=== PATIENT | male | born 1950 | race Caucasian/White ===

== ENCOUNTER 2019-04-06 10:00 | Inpatient (IN) | payer OTHER, MEDICARE, SELFPAY ==
[2019-04-06] VITALS (99 sets, daily range): BP systolic 81–157; BP diastolic 44–116; PULSE 40–163; RESP 9–63; TEMP 36.4–37.2; O2SAT 89–99
--- NOTE | 2019-04-06 10:22 | DI.RAD_ITS ---
SYMPTOMS/DIAGNOSIS: AFIB, PALPITATIONS PORTABLE AP CHEST: The heart appears mildly enlarged. The lungs are clear and well expanded. CONCLUSION: Cardiomegaly, no evidence of acute process.
--- NOTE | 2019-04-06 10:29 | W.ED.GENAD ---
Discharge Plan Disposition Patient Disposition: [facility] INPATIENT Condition: Stable Discharge Details Chief Complaint: RespSymp Clinical Impression: Atrial fibrillation with rapid ventricular response Admit Date/Time: 04/06/19 13:51 Admit Provider: Darren Johnson Attending Provider: Darren Johnson Primary Care Provider: None,None ED Provider: Mitchell Richards Discharge Data Discharge Date/Time-TO BE ENTERED AT DEPARTURE: 04/06/19 15:38 Medical Decision Making 69-year-old male presents from home stating he had gradual onset of shortness of breath associated palpitations 2 days ago.'s been constant and unrelenting. He denies having chest pain or syncope. Admits to some generalized weakness. He arrives with a pulse of 158, otherwise reassuring vital signs. His initial screening EKG reveals atrial flutter with a rate of 160. Differential diagnosis includes dehydration, likely abnormality, rapid atrial fibrillation due to same or underlying ACS. Patient had IV access established, placed on a monitoring manager, given fluid bolus, diltiazem drip initiated, referred for laboratory testing, chest x-ray. The patient's diagnostic studies are reassuring and that his CBC, comprehensive panel, troponin negative. After bolus and infusion of diltiazem, patient has diffuse improved rate control with a pulse in the 90s. Given 1 mg/kg of Lovenox with atrial dysrhythmia of unknown/approximately 48 hours duration. No beds initially available at [facility], no beds at [facility]. Case discussed with [facility] who also are unable to accept due to bed availability. [facility] afternoon census was retaken, bed available. Patient seen in consultation by care management to help assist with care for the patient's 2 dogs. ECG Data Attestation: I personally reviewed and interpreted this ECG (s) as follows: Interpretation: Regular, narrow complex tachycardia with a rate of 160, there are T wave inversions in the lateral leads that are nonspecific. Most consistent with atrial flutter EKG #2 obtained at 1155 hrs. reveals underlying A. fib flutter with a ventricular response of 91, there are T wave inversions throughout the precordium HPI General Mode of arrival: ambulatory. Date/Time Provider Initiated Documentation: 04/06/19 10:01. Limitations to Documentation: no limitations. Information obtained by: patient. History of Present Illness 69 year old M presents to the emergency department with the chief complaint of Short of breath for 2 days with palpitations, described as moderate, Quality is described as dull and constant, and is localized to the chest. Patient reports no radiation. Patient started experiencing this day(s) and it has been constant. No relieving factors improve symptom(s), Movement worsens symptoms . Patient notes weakness; denies chest pain and syncope. Patient did receive the following treatments prior to arrival, none Related Data Home Medications Medication Instructions Recorded Confirmed aspirin [Aspir-81] 81 mg PO DAILY 02/21/15 04/06/19 ibuprofen 800 mg PO TID #30 tablet 02/21/15 04/06/19 lorazepam 1 mg PO .QHS 02/21/15 04/06/19 simvastatin 40 mg PO DAILY 02/21/15 04/06/19 bupropion HCl 150 mg PO DAILY 03/11/16 04/06/19 divalproex 1,500 tab PO .QHS 03/11/16 04/06/19 levothyroxine 25 mcg PO DAILY #30 tab 03/11/16 04/06/19 olanzapine [Zyprexa] 40 mg PO .QHS 03/11/16 04/06/19 diphenhydramine HCl 1 tab PO PRN PRN 03/14/16 04/06/19 benztropine 0.5 mg PO BID 04/06/19 04/06/19 Previous Rx's Medication Instructions Recorded ibuprofen 800 mg PO TID #30 tablet 02/21/15 levothyroxine 25 mcg PO DAILY #30 tab 03/11/16 Allergies Allergy/AdvReac Type Severity Reaction Status Date / Time plasma Allergy Unknown Uncoded 04/06/19 11:06 tuna fish AdvReac Intermediate Nausea Uncoded 04/06/19 11:06 General Stated Complaint: RespSymp DAWNA: 2 Review of Systems Review of Systems No chest pain. No syncope. 8 systems reviewed and otherwise no PFSH Social History Smoking/Tobacco Use Status: Former Tobacco Use Alcohol Intake: never Drug use: Never Substance use type: does not use Do you feel safe at home: Yes Do you feel safe in your relationship?: Yes Exam Narrative Exam Narrative: GEN: awake, alert, oriented 3. Pleasant, well groomed, interactive. HEAD: Normocephalic, atraumatic ENT: Mucous membranes moist, oropharynx unremarkable, External ear exam unremarkable EYES: PERRL, EOMI NECK: Full ROM, no FRANCY, no menigismus CHEST/RESP: Nontender, clear to auscultation bilateral, no wheeze/rhonchi/rales CARDIOVASCULAR: Rapid, regular rhythm that is tachycardic, no murmur, rub rufino. 2+ Rad pulse bilateral ABDOMEN: Soft, nontender, no mass. +Bowel sounds EXT: Full ROM, no edema, no rash Neuro: Grossly normal neurologic exam, conversant, interactive. Psych: Speech fluent, thoughts congruent, affect normal Course Vital Signs Temperature 37.2 C 04/06/19 10:08 Pulse 158 H 04/06/19 10:08 Respiratory Rate 14 04/06/19 10:08 Blood Pressure 118/98 H 04/06/19 10:08 Pulse Oximetry 99 04/06/19 10:08 Temperature 37.2 C 04/06/19 10:08 Temperature Source Temporal Artery Scan 04/06/19 10:08 Pulse 158 H 04/06/19 10:08 Respiratory Rate 14 04/06/19 10:08 Respiratory Effort Non-Labored 04/06/19 10:11 Blood Pressure 118/98 H 04/06/19 10:08 Blood Pressure Position Sitting 04/06/19 10:08 Pulse Oximetry 99 04/06/19 10:08 Oxygen Delivery Method Room Air 04/06/19 10:08 Oxygen Flow Rate 0 04/06/19 10:08 Pain Level 0 04/06/19 10:08 Critical Care Time Critical Care Time: Yes Total Critical Care Time: 30 Attestation: Bedside management, discussion with consultants
[2019-04-06] MEDS: dilTIAZem 25 MG/5 ML VIAL 10 MG IVP ×2 (10:32→10:59)
[2019-04-06] MEDS: dilTIAZem 125 MG in Normal Saline 100 ML IV (10:43)
[2019-04-06] MEDS: Normal Saline 250 ML 500 ML IV (10:47)
[2019-04-06 10:57] LABS: Absolute Eosinophil Count 0.16 k/cumm (0.0-0.7); HCT 40.1 % (40.0-50.0); HGB 12.8 g/dL (13.5-17.5); Mean Corp. HGB Concentration 31.9 g/dL (32.0-36.0); Mean Corpuscular Hemoglobin 31.3 pg (27.0-33.0); Mean Platelet Volume 10.3 fL (8.0-11.0); Platelet Count 198 x1000/uL (130-400); RBC 4.09 m/cumm (4.50-6.00); RBC Distribution Width 13.1 % (11.8-14.1); White Blood Cell Count 7.83 k/cumm (4.4-10.8)
[2019-04-06 11:10] LABS: Absolute Basophil Count 0.08 k/cumm (0.0-0.2); Absolute Lymphocyte Count 2.04 k/cumm (1.2-3.4); Absolute Monocyte Count 0.78 k/cumm (0.11-0.7); Absolute Neutrophil Count 4.78 k/cumm (1.2-6.7)
[2019-04-06 11:11] LABS: Diff Comment Manual Differential; RBC Morphology Normal
[2019-04-06 11:14] LABS: INR 1.1 (0.9-1.1); PTT Activated 23.2 sec (21.0-31.4); Prothrombin Time 11.3 sec (9.3-11.0)
[2019-04-06 11:26] LABS: ALT 26 U/L (12-78); AST 19 U/L (15-37); Albumin 3.7 g/dL (3.4-5.0); Alkaline Phosphatase 52 U/L (46-116); Anion Gap 10.1 mmol/L (3-11); BUN 16 mg/dL (7-18); Bilirubin, Total 0.7 mg/dL (0.2-1.0); CO2 26.9 mmol/L (21.0-32.0); CREATININE 1.24 mg/dL (0.70-1.30); Calcium 9.2 mg/dL (8.5-10.1); Chloride 107 mmol/L (98-107); Estimated GFR 58.15 (mL/min/1.73m2); Glucose 145 mg/dL (70-100); Potassium 4.4 mmol/L (3.5-5.1); Sodium 144 mmol/L (136-145); Total Protein 6.8 g/dL (6.4-8.2)
[2019-04-06 11:27] LABS: Troponin I < 0.05 ng/mL (0.00-0.06)
[2019-04-06] MEDS: dilTIAZem 25 MG/5 ML VIAL 5 MG IVP (11:39)
[2019-04-06 11:50] LABS: Bilirubin Negative (Negative); Blood Negative (Negative); Clarity Clear (Clear); Glucose Negative (Negative); Ketones Negative (Negative); Leukocyte Esterase Negative (Negative); Nitrite Negative (Negative); Specific Gravity 1.015 (1.005-1.025); Urobilinogen 0.2 EU/dL (Up TO 0.2)
[2019-04-06] MEDS: Enoxaparin 80 MG/0.8 ML SYR SC (12:32)
[2019-04-06 13:05] LABS: NT-proBNP 3620 pg/mL
[2019-04-06 14:24] LABS: TSH 4.89 uIU/mL (0.358-3.74)
[2019-04-06] MEDS: dilTIAZem 125 MG in Normal Saline 100 ML 10 MG IV (16:45)
--- NOTE | 2019-04-06 17:19 | PGE_ITS ---
Date of Service Date of service: 04/06/19 Time of Service: 17:17 Subjective Interval history since last seen: 69 year old man with a prior history of Hypothyroidism and bipolar disorder, being admitted from [facility] Emergency Department with a new diagnosis of Afib. [facility]. Lin [facility], and has a Past Medical History significant for Bipolar Disorder, Hypothyroidism on replacement therapy, prior Cannabis abuse, Hematuria, dyslipidemia, and prior SBO. He presented to the ED with a 2 day history of worsening dyspnea and fatigue, along with subjective constipation. Work-up was significant for a normal WBC, electrolytes, Magnesium, Troponin, LFTs, and urinalysis. His TSH was minimally elevated on replacement therapy. His BNP however was elevated at 3620, and his CXR showed cardiomegally. He was referred for admission for further evaluation and treatment. Exam Narrative Exam Narrative: General: Patient appears comfortable, AAOX3, NAD Neck: Supple CV: Heart sounds appear regular, tachycardic, S1S2, No rubs, murmurs, or gallops. Pulmonary: Bibasilar crackles, wheezing, or rhonchi Abdomen: + Bowel Sounds, soft, nontender, nondistended Vascular: No lower extremity edema Psych: Normal mood and affect. Objective Objective Clinical Data: Abnormal lab results 04/06/19 04/06/19 04/06/19 Range/Units 10:15 10:15 10:15 RBC 4.09 L (4.50-6.00) m/cumm Hgb 12.8 L (13.5-17.5) g/dL MCV 98.0 H (80-95) fL MCHC 31.9 L (32.0-36.0) g/dL Absolute Monocytes 0.78 H (0.11-0.7) k/cumm PT 11.3 H (9.3-11.0) sec Glucose 145 H (70-100) mg/dL NT-Pro-B Natriuret Pep 3620 H ( - 299) pg/mL TSH 4.89 H (0.358-3.74) uIU/mL Vital Signs Temperature 36.9 C 04/06/19 16:32 Temperature Source Temporal Artery Scan 04/06/19 16:32 Pulse 88 04/06/19 16:32 Pulse 91 H 04/06/19 16:32 Respiratory Rate 15 04/06/19 16:32 Respiratory Effort Non-Labored 04/06/19 16:32 Respiratory Depth Normal 04/06/19 16:32 Respiratory Pattern Normal 04/06/19 16:32 Blood Pressure 126/81 04/06/19 16:32 Blood Pressure Mean 96 04/06/19 16:32 Blood Pressure Position Supine 04/06/19 16:32 Pulse Oximetry 97 04/06/19 16:32 Oxygen Delivery Method Room Air 04/06/19 16:32 Oxygen Flow Rate 0 04/06/19 16:32 Pain Level 0 04/06/19 16:32 Intake & Output 04/05/19 04/06/19 04/06/19 23:59 11:59 23:59 Intake Total 510.750 / 612.083 101.333 / 612.083 Balance 510.750 / 612.083 101.333 / 612.083 Weight 87.3 kg 83.9 kg Intake: IV 510.750 / 612.083 101.333 / 612.083 Laboratory Results WBC 7.83 k/cumm (4.4-10.8) 04/06/19 10:15 RBC 4.09 m/cumm (4.50-6.00) L 04/06/19 10:15 Hgb 12.8 g/dL (13.5-17.5) L 04/06/19 10:15 Hct 40.1 % (40.0-50.0) 04/06/19 10:15 MCV 98.0 fL (80-95) H 04/06/19 10:15 MCH 31.3 pg (27.0-33.0) 04/06/19 10:15 MCHC 31.9 g/dL (32.0-36.0) L 04/06/19 10:15 RDW 13.1 % (11.8-14.1) 04/06/19 10:15 Plt Count 198 x1000/uL (130-400) 04/06/19 10:15 MPV 10.3 fL (8.0-11.0) 04/06/19 10:15 Immature Gran % 0.0 04/06/19 10:15 Neutrophils % 61.0 04/06/19 10:15 Lymphocytes % 26.0 04/06/19 10:15 Monocytes % 10.0 04/06/19 10:15 Eosinophils % 2.0 04/06/19 10:15 Basophils % 1.0 04/06/19 10:15 Absolute Neutrophils 4.78 k/cumm (1.2-6.7) 04/06/19 10:15 Absolute Lymphocytes 2.04 k/cumm (1.2-3.4) 04/06/19 10:15 Absolute Monocytes 0.78 k/cumm (0.11-0.7) H 04/06/19 10:15 Absolute Eosinophils 0.16 k/cumm (0.0-0.7) 04/06/19 10:15 Absolute Basophils 0.08 k/cumm (0.0-0.2) 04/06/19 10:15 Differential Comment Manual differential 04/06/19 10:15 RBC Morphology Normal 04/06/19 10:15 PT 11.3 sec (9.3-11.0) H 04/06/19 10:15 INR 1.1 (0.9-1.1) 04/06/19 10:15 APTT 23.2 sec (21.0-31.4) 04/06/19 10:15 Sodium 144 mmol/L (136-145) 04/06/19 10:15 Potassium 4.4 mmol/L (3.5-5.1) 04/06/19 10:15 Chloride 107 mmol/L (98-107) 04/06/19 10:15 Carbon Dioxide 26.9 mmol/L (21.0-32.0) 04/06/19 10:15 Anion Gap 10.1 mmol/L (3-11) 04/06/19 10:15 BUN 16 mg/dL (7-18) 04/06/19 10:15 Creatinine 1.24 mg/dL (0.70-1.30) 04/06/19 10:15 Estimated GFR/1.73 m2 58.15 (mL/min/1.73m2) 04/06/19 10:15 Glucose 145 mg/dL (70-100) H 04/06/19 10:15 Calcium 9.2 mg/dL (8.5-10.1) 04/06/19 10:15 Magnesium 2.0 mg/dL (1.8-2.4) 04/06/19 10:15 Total Bilirubin 0.7 mg/dL (0.2-1.0) 04/06/19 10:15 AST 19 U/L (15-37) 04/06/19 10:15 ALT 26 U/L (12-78) 04/06/19 10:15 Alkaline Phosphatase 52 U/L (46-116) 04/06/19 10:15 Troponin I < 0.05 ng/mL (0.00-0.06) 04/06/19 10:15 NT-Pro-B Natriuret Pep 3620 pg/mL (-299) H 04/06/19 10:15 Total Protein 6.8 g/dL (6.4-8.2) 04/06/19 10:15 Albumin 3.7 g/dL (3.4-5.0) 04/06/19 10:15 TSH 4.89 uIU/mL (0.358-3.74) H 04/06/19 10:15 Urine Color Yellow (Yellow) 04/06/19 11:43 Urine Clarity Clear (Clear) 04/06/19 11:43 Urine pH 7.0 (5-8) 04/06/19 11:43 Ur Specific [place] 1.015 (1.005-1.025) 04/06/19 11:43 Urine Protein Negative mg/dL (Negative) 04/06/19 11:43 Urine Ketones Negative mg/dL (Negative) 04/06/19 11:43 Urine Blood Negative (Negative) 04/06/19 11:43 Urine Nitrite Negative (Negative) 04/06/19 11:43 Urine Bilirubin Negative (Negative) 04/06/19 11:43 Urine Urobilinogen 0.2 EU/dL (Up TO 0.2) 04/06/19 11:43 Ur Leukocyte Esterase Negative (Negative) 04/06/19 11:43 Urine Glucose Negative mg/dL (Negative) 04/06/19 11:43
--- NOTE | 2019-04-06 18:04 | W.PM.HP.N ---
Date of service: 04/06/19 Time of Service: 18:04 Assessment and Plan (1) Atrial flutter: Current visit: Yes Status: Acute New diagnosis, along with subjective dyspnea, evidence of crackles on exam, and elevated BNP. Initial Troponin negative. Initiate Cardizem gtt. Check ECHO and start weight based Enoxaparin until significant valvular disease has been ruled out. Check serial cardiac biomarkers as well. Goal is to transition to oral greg agent and anticoagulation soon. Will also initiate IV Lasix, and monitor daily weights, I/O's. (2) Hypothyroidism: Current visit: Yes Status: Chronic Continue replacement therapy. TSH mildly elevated. (3) Dyslipidemia: Current visit: Yes Status: Chronic Continue statin therapy. (4) Bipolar disorder: Current visit: Yes Status: Chronic Currently on therapy with Olazapine, Depakote. Also on Bupropion, Lorazepam for underlying depression. Holding Benztropine currently due to potential for contributing to tachycardia, although currently on minimal dosing. (5) DVT prophylaxis: Current visit: Yes Status: Acute On therapeutic Enoxaparin. History of Present Illness Chief Complaint: Dyspnea, Fatigue Narrative: 69 year old man with a prior history of Hypothyroidism and bipolar disorder, being admitted from [facility] Emergency Department with a new diagnosis of Afib. Mr. Lin is [facility] patient, and has a Past Medical History significant for Bipolar Disorder, Hypothyroidism on replacement therapy, prior Cannabis abuse, Hematuria, dyslipidemia, and prior SBO. He presented to the ED with a 2 day history of worsening dyspnea and fatigue, along with subjective constipation. Work-up was significant for a normal WBC, electrolytes, Magnesium, Troponin, LFTs, and urinalysis. His TSH was minimally elevated on replacement therapy. His BNP however was elevated at 3620, and his CXR showed cardiomegally. He was referred for admission for further evaluation and treatment. Review of Systems Review of Systems All systems reviewed & are unremarkable except as noted in HPI and below [facility] Medical History Hematuria (Chronic) History of cannabis abuse (Chronic) Hypothyroidism (Chronic) Bipolar disorder (Chronic) Social History Smoking/Tobacco Use Status: Former Tobacco Use Alcohol Intake: never Drug use: Never Substance use type: does not use Do you feel safe at home: Yes Do you feel safe in your relationship?: Yes Additional Social history: . No children. Denies tobacco, alcohol, and illicit drugs. 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 Meds Home Medications Medication Instructions Recorded Confirmed Type aspirin [Aspir-81] 81 mg PO DAILY 02/21/15 04/06/19 History ibuprofen 800 mg PO TID #30 tablet 02/21/15 04/06/19 Rx lorazepam 1 mg PO .QHS 02/21/15 04/06/19 History simvastatin 40 mg PO DAILY 02/21/15 04/06/19 History bupropion HCl 150 mg PO DAILY 03/11/16 04/06/19 History levothyroxine 25 mcg PO DAILY #30 tab 03/11/16 04/06/19 Rx olanzapine [Zyprexa] 40 mg PO .QHS 03/11/16 04/06/19 History diphenhydramine HCl 1 tab PO PRN PRN 03/14/16 04/06/19 History benztropine 0.5 mg PO BID 04/06/19 04/06/19 History divalproex [Depakote ER] 500 mg PO HS 04/06/19 04/06/19 History Allergies Allergy/AdvReac Type Severity Reaction Status Date / Time plasma Allergy Unknown Uncoded 04/06/19 11:06 tuna fish AdvReac Intermediate Nausea Uncoded 04/06/19 11:06 Exam Narrative Exam Narrative: General: Patient appears comfortable, AAOX3, NAD Neck: Supple CV: Heart sounds appear regular, tachycardic, S1S2, No rubs, murmurs, or gallops. Pulmonary: Bibasilar crackles, wheezing, or rhonchi Abdomen: + Bowel Sounds, soft, nontender, nondistended Vascular: No lower extremity edema Psych: Normal mood and affect. Results Labs : 04/06/19 10:15 04/06/19 10:15 Laboratory Results - last 24 hr 04/06/19 04/06/19 04/06/19 10:15 10:15 10:15 WBC 7.83 RBC 4.09 L Hgb 12.8 L Hct 40.1 MCV 98.0 H MCH 31.3 MCHC 31.9 L RDW 13.1 Plt Count 198 MPV 10.3 Immature Gran % 0.0 Neutrophils % 61.0 Lymphocytes % 26.0 Monocytes % 10.0 Eosinophils % 2.0 Basophils % 1.0 Absolute Neutrophils 4.78 Absolute Lymphocytes 2.04 Absolute Monocytes 0.78 H Absolute Eosinophils 0.16 Absolute Basophils 0.08 Differential Comment Manual differential RBC Morphology Normal PT 11.3 H INR 1.1 APTT 23.2 Sodium 144 Potassium 4.4 Chloride 107 Carbon Dioxide 26.9 Anion Gap 10.1 BUN 16 Creatinine 1.24 Estimated GFR/1.73 m2 58.15 Glucose 145 H Calcium 9.2 Magnesium 2.0 Total Bilirubin 0.7 AST 19 ALT 26 Alkaline Phosphatase 52 Troponin I < 0.05 NT-Pro-B Natriuret Pep 3620 H Total Protein 6.8 Albumin 3.7 TSH 4.89 H Urine Color Urine Clarity Urine pH Ur Specific [place] Urine Protein Urine Ketones Urine Blood Urine Nitrite Urine Bilirubin Urine Urobilinogen Ur Leukocyte Esterase Urine Glucose 04/06/19 11:43 WBC RBC Hgb Hct MCV MCH MCHC RDW Plt Count MPV Immature Gran % Neutrophils % Lymphocytes % Monocytes % Eosinophils % Basophils % Absolute Neutrophils Absolute Lymphocytes Absolute Monocytes Absolute Eosinophils Absolute Basophils Differential Comment RBC Morphology PT INR APTT Sodium Potassium Chloride Carbon Dioxide Anion Gap BUN Creatinine Estimated GFR/1.73 m2 Glucose Calcium Magnesium Total Bilirubin AST ALT Alkaline Phosphatase Troponin I NT-Pro-B Natriuret Pep Total Protein Albumin TSH Urine Color Yellow Urine Clarity Clear Urine pH 7.0 Ur Specific [place] 1.015 Urine Protein Negative Urine Ketones Negative Urine Blood Negative Urine Nitrite Negative Urine Bilirubin Negative Urine Urobilinogen 0.2 Ur Leukocyte Esterase Negative Urine Glucose Negative Last Vital Signs Temp 36.9 C 04/06/19 16:32 Pulse 88 04/06/19 16:32 Resp 15 04/06/19 16:32 BP 126/81 04/06/19 16:32 Pulse Ox 97 04/06/19 16:32
[2019-04-06] MEDS: Furosemide 20 MG/2 ML VIAL IVP (18:56)
[2019-04-06] MEDS: Normal Saline Flush 10 ML SYR IVP (18:57)
[2019-04-06 19:19] LABS: Troponin I < 0.05 ng/mL (0.00-0.06)
[2019-04-06 19:44] LABS: FREE T4 0.75 ng/dL (0.76-1.46)
[2019-04-06] MEDS: Simvastatin 20 MG TAB 40 MG PO (20:15)
[2019-04-06] MEDS: LORazepam 1 MG TAB PO (21:44)
[2019-04-06] MEDS: Divalproex Sodium 500 MG TAB.ER.24H PO (21:44)
[2019-04-06] MEDS: OLANZapine 10 MG TAB 40 MG PO (21:45)
[2019-04-06] MEDS: Enoxaparin 100 MG/ML SYR 85 MG SC (23:02)
[2019-04-07] VITALS (42 sets, daily range): BP systolic 83–137; BP diastolic 46–98; PULSE 43–156; RESP 0–33; TEMP 36.3–37; O2SAT 77–100
[2019-04-07] MEDS: Levothyroxine 25 MCG TAB PO (05:07)
[2019-04-07 07:34] LABS: Abs Immature Grans 0.01 k/cumm (0.0-0.09); Absolute Basophil Count 0.06 k/cumm (0.0-0.2); Absolute Eosinophil Count 0.26 k/cumm (0.0-0.7); Absolute Lymphocyte Count 2.83 k/cumm (1.2-3.4); Absolute Monocyte Count 0.77 k/cumm (0.11-0.7); Absolute Neutrophil Count 3.43 k/cumm (1.2-6.7); Basophils % 0.8; Eosinophils % 3.5; HCT 37.3 % (40.0-50.0); HGB 11.6 g/dL (13.5-17.5); Immature Grans % 0.1; Lymphocytes % 38.5; Mean Corp. HGB Concentration 31.1 g/dL (32.0-36.0); Mean Corpuscular Volume 99.7 fL (80-95); Mean Platelet Volume 10.4 fL (8.0-11.0); Monocytes % 10.5; Neutrophils % 46.6; Platelet Count 180 x1000/uL (130-400); RBC 3.74 m/cumm (4.50-6.00); RBC Distribution Width 13.2 % (11.8-14.1); White Blood Cell Count 7.36 k/cumm (4.4-10.8)
[2019-04-07 08:06] LABS: Anion Gap 8.6 mmol/L (3-11); BUN 22 mg/dL (7-18); CO2 28.4 mmol/L (21.0-32.0); CREATININE 1.17 mg/dL (0.70-1.30); Chloride 107 mmol/L (98-107); Glucose 121 mg/dL (70-100); Magnesium 2.2 mg/dL (1.8-2.4); Potassium 3.8 mmol/L (3.5-5.1); Sodium 144 mmol/L (136-145)
[2019-04-07] MEDS: Furosemide 40 MG/4 ML VIAL IVP ×2 (08:08→17:47)
[2019-04-07] MEDS: Esomeprazole 40 MG CAPCR PO (08:08)
[2019-04-07] MEDS: buPROPion-XL 150 MG TABCR PO (08:08)
[2019-04-07 08:10] LABS: Troponin I < 0.05 ng/mL (0.00-0.06)
--- NOTE | 2019-04-07 09:00 | MERGE_ITS ---
*[facility]* *[facility]* [address] [place] [address] Date of study: 04/07/2019 Transthoracic Echocardiography M-mode, complete 2D, complete spectral Doppler, and color Doppler *STUDY CONCLUSIONS* Impressions: The patient was in atrial fibrillation/tachycardia during parts of the study. This rhythm can interfere with accurate global and segmental wall motion analysis. Summary: 1. Left ventricle: The cavity size was mildly dilated. Wall thickness was increased in a pattern of mild LVH. Systolic function was mildly to moderately reduced. The estimated ejection fraction was 40-45%. Moderate diffuse hypokinesis with regional variations. 2. Aortic valve: Mild focal thickening involving the noncoronary cusp. There was trivial regurgitation. Valve area (VTI): 2.6cm^2. Valve area (Vmax): 3.1cm^2. Valve area (Vmean): 3cm^2. 3. Mitral valve: There was moderate to severe regurgitation. 4. Left atrium: The atrium was mildly dilated. 5. Right ventricle: The cavity size was normal. Wall thickness was normal. Systolic function was normal. 6. Pulmonary arteries: Pulmonary systolic pressure was at the upper limits of normal. PA peak pressure: 36mm Hg (S). 7. Pericardium, extracardiac: A trivial pericardial effusion was identified. *PATIENT PRESENTATION* Height: 170.2cm (67in ) S/D Pressure: 125 / 77 Weight: 83.9kg (184.6lb ) BSA: 2.01m^2 Test start time: 09:15 AM. Test stop time: 10:20 AM. PERFORMING Unknown ORDERING Darren Johnson Darren Johnson PERFORMING [facility] CONSULTING None, None [facility] [employer]ODEL[employer] RT [place])([place]), [facility] *PROCEDURE DATA* Procedure information: The patient was identified by two identifiers. This study was interpreted by [facility]. Pertinent images and digital data are archived for permanent storage and are available for subsequent review. No prior study was available for comparison. Study status: Routine. Transthoracic echocardiography. M-mode, complete 2D, complete spectral Doppler, and color Doppler. A Transthoracic Echocardiogram was performed. Scanning was performed from the parasternal, apical, subcostal, and suprasternal notch acoustic windows. Images were obtained using an [id number] cardiac ultrasound machine. Study completion: The patient tolerated the procedure well. History: PMH: New onset afib. *CARDIAC ANATOMY* Left ventricle: The cavity size was mildly dilated. Wall thickness was increased in a pattern of mild LVH. Systolic function was mildly to moderately reduced. The estimated ejection fraction was 40-45%. Moderate diffuse hypokinesis with regional variations. Aortic valve: Trileaflet; normal thickness leaflets. Mild focal thickening involving the noncoronary cusp. Mobility was not restricted. Doppler: Transvalvular velocity was within the normal range. There was no stenosis. There was trivial regurgitation. VTI ratio of LVOT to aortic valve: 0.72. Valve area (VTI): 2.6cm^2. Indexed valve area (VTI): 1.3cm^2/m^2. Peak velocity ratio of LVOT to aortic valve: 0.85. Valve area (Vmax): 3.1cm^2. Indexed valve area (Vmax): 1.5cm^2/m^2. Mean velocity ratio of LVOT to aortic valve: 0.83. Valve area (Vmean): 3cm^2. Indexed valve area (Vmean): 1.5cm^2/m^2. Mean gradient (S): 2.9mm Hg. Peak gradient (S): 4.1mm Hg. Aorta: Aortic root: The aortic root was at upper normal limits. Mitral valve: Mildly thickened leaflets. Mobility was not restricted. Doppler: Transvalvular velocity was within the normal range. There was no evidence for stenosis. There was moderate to severe regurgitation. Peak gradient (D): 4.8mm Hg. Left atrium: The atrium was mildly dilated. Right ventricle: The cavity size was normal. Wall thickness was normal. Systolic function was normal. Pulmonic valve: Poorly visualized. Doppler: Transvalvular velocity was within the normal range. There was no evidence for stenosis. There was mild regurgitation. Peak gradient (S): 1.2mm Hg. Tricuspid valve: Structurally normal valve. Doppler: Transvalvular velocity was within the normal range. There was no evidence for stenosis. There was no significant regurgitation. Pulmonary artery: Poorly visualized. Pulmonary systolic pressure was at the upper limits of normal. Right atrium: The atrium was normal in size. Pericardium: A trivial pericardial effusion was identified. Systemic veins: Inferior vena cava: Well visualized. The vessel was patent and dilated. The respirophasic diameter changes were blunted (less than 50%), consistent with elevated central venous pressure. Baseline ECG: Atrial flutter. Measurements Left ventricle Value Reference LV ID, ED, PLAX (H) 6.3 cm 3.5 - 6.0 LV ID, ES, PLAX (H) 5.1 cm 2.1 - 4.0 LV PW thickness, ED, PLAX 1.0 cm LV end-diastolic volume, 1-p A2C 98 ml LV ejection fraction, 1-p A2C 33 % LV end-diastolic volume, 1-p A4C 111 ml LV ejection fraction, 1-p A4C 38 % LV e', medial 0.08 m/sec LV E/e', medial 14 Ventricular septum Value Reference IVS thickness, ED, PLAX 1.2 cm LVOT Value Reference LVOT ID, A-P 2.2 cm LVOT area 3.7 cm^2 LVOT peak velocity, S 0.86 m/sec LVOT mean velocity, S 0.64 m/sec LVOT VTI, S 10.8 cm LVOT peak gradient, S 3 mm Hg LVOT mean gradient, S 1.9 mm Hg Stroke volume (SV), LVOT DP 39 ml Stroke index (SV/bsa), LVOT DP 20 ml/m^2 Aortic valve Value Reference Aortic valve peak velocity, S 1 m/sec Aortic valve mean velocity, S 0.8 m/sec Aortic valve VTI, S 15.0 cm Aortic mean gradient, S 2.9 mm Hg Aortic peak gradient, S 4.1 mm Hg VTI ratio, LVOT/AV 0.72 Aortic valve area, VTI 2.6 cm^2 Velocity ratio, peak, LVOT/AV 0.85 Aortic valve area, peak velocity 3.1 cm^2 Velocity ratio, mean, LVOT/AV 0.83 Aortic valve area, mean velocity 3 cm^2 Aortic valve area/bsa, mean velocity 1.5 cm^2/m^2 Aorta Value Reference Aortic root ID, ED 3.9 cm RVOT Value Reference RVOT VTI, S 11.8 cm Left atrium Value Reference LA ID, A-P, ES 4.8 cm LA ID/bsa, A-P (H) 2.4 cm/m^2 <=2.2 LA volume/bsa, ES, 1-p A4C 37 ml/m^2 LA volume, ES, 2-p 71 ml LA volume/bsa, ES, 2-p 35 ml/m^2 LA/aortic root ratio 1.23 Mitral valve Value Reference Mitral E-wave peak velocity 1.1 m/sec Mitral peak gradient, D 4.8 mm Hg Pulmonary arteries Value Reference PA pressure, S, DP (H) 36 mm Hg <=30 Tricuspid valve Value Reference Tricuspid regurg peak velocity 2.4 m/sec Tricuspid peak RV-RA gradient 22.7 mm Hg Right atrium Value Reference RA area, ES, A4C (H) 20 cm^2 8.3 - 19.5 Systemic veins Value Reference Estimated CVP 15 mm Hg Right ventricle Value Reference RV pressure, S, DP (H) 38 mm Hg <=30 Pulmonic valve Value Reference Pulmonic peak gradient, S 1.2 mm Hg Legend: (L) and (H) dustin values outside specified reference range. I have personally reviewed the images and have reviewed and edited the reported findings. Electronically signed by Nicolasa Betancourt 04/07/2019 17:33
[2019-04-07] MEDS: Metoprolol 25 MG TAB PO ×3 (09:07→21:35)
--- NOTE | 2019-04-07 10:51 | PDOC.CMIN ---
- If Service Date Differs Date of service: 04/07/19 Time of Service: 10:51 Care Management Initial Assess REASON FOR HOSPITALIZATION:: atrial flutter PAST MEDICAL HISTORY/PAST SURGICAL HISTORY:: Medical History: Hematuria (Chronic). History of cannabis abuse (Chronic). Hypothyroidism (Chronic). Bipolar disorder (Chronic) PREVIOUS FUNCTIONAL STATUS/SOCIAL/FAMILY SUPPORTS:: Jose Antonio lives alone in a single family home in [place], [place] He was but his from ovarian cancer 4 years ago. Josue has 2 large dogs that he is very fond of. He identifies his sister, who lives in [place], as his main support system. He states he really doesn't have many friends in the area.Josue is independent with all self care and activities. CURRENT FUNCTIONAL STATUS:: Jose Antonio was sitting up in bed when CM came to see him. He was a bit sleepy and kept closing his eyes and dozing during the visit. He states he is not clear about what the plan of care will be but is anxious to get home. His dogs were placed in a kennel yesterday and he has called and ensured that they are doing well. ADVANCE DIRECTIVES:: None on file at [facility] Has patient been provided with information about the portal?: No Did the patient sign up for the portal?: No CODE STATUS:: Full Code INSURANCE COVERAGE / FINANCIAL ISSUES:: 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 PRIMARY CARE PHYSICIAN:: Jose Antonio has no PCP in the community but [facility]. POTENTIAL DISCHARGE NEEDS:: establish a relationship with PCP, if appropriate,and follw up with discharge plan of care PATIENT/FAMILY EDUCATION NEEDS:: Discharge plan, limitations, follow up plan and Ask Me Three TRANSPORTATION:: Jose Antonio drove himself to the hospital and plans to drive himself home. PLAN:: Jose Antonio is in the ICU receiving IV medications to control his rapid heart rate. He will likey be discharged home with no services when ready.CM will continue to provide support to patient, care team and discharge planning process.
--- NOTE | 2019-04-07 11:02 | INITIAL_ITS ---
- If Service Date Differs Date of service: 04/07/19 Time of Service: 10:51 Care Management Initial Assess REASON FOR HOSPITALIZATION:: atrial flutter PAST MEDICAL HISTORY/PAST SURGICAL HISTORY:: Medical History: Hematuria (Chronic). History of cannabis abuse (Chronic). Hypothyroidism (Chronic). Bipolar disorder (Chronic) PREVIOUS FUNCTIONAL STATUS/SOCIAL/FAMILY SUPPORTS:: Jose Antonio lives alone in a single family home in [place] He was but his from ovarian cancer 4 years ago. Josue has 2 large dogs that he is very fond of. He identifies his sister, who lives in [place], as his main support system. He states he really doesn't have many friends in the area.Josue is independent with all self care and activities. CURRENT FUNCTIONAL STATUS:: Jose Antonio was sitting up in bed when CM came to see him. He was a bit sleepy and kept closing his eyes and dozing during the visit. He states he is not clear about what the plan of care will be but is anxious to get home. His dogs were placed in a kennel yesterday and he has called and ensured that they are doing well. ADVANCE DIRECTIVES:: None on file at [facility] Has patient been provided with information about the portal?: No Did the patient sign up for the portal?: No CODE STATUS:: Full Code INSURANCE COVERAGE / FINANCIAL ISSUES:: [facility] CURRENT HOME/COMMUNITY SERVICES/EQUIPMENT:: Jose Antonio is a [employer] client. PRIMARY CARE PHYSICIAN:: Jose Antonio has no PCP in the community but [facility]. POTENTIAL DISCHARGE NEEDS:: establish a relationship with PCP, if appropriate,and follw up with discharge plan of care PATIENT/FAMILY EDUCATION NEEDS:: Discharge plan, limitations, follow up plan and Ask Me Three TRANSPORTATION:: Jose Antonio drove himself to the hospital and plans to drive himself home. PLAN:: Jose Antonio is in the ICU receiving IV medications to control his rapid heart rate. He will likey be discharged home with no services when ready.CM will continue to provide support to patient, care team and discharge planning process.
[2019-04-07] MEDS: Potassium Chloride 20 MEQ TABCR PO (11:20)
[2019-04-07] MEDS: Enoxaparin 100 MG/ML SYR 85 MG SC (13:02)
[2019-04-07] MEDS: dilTIAZem 125 MG in Normal Saline 100 ML 15 MG IV (13:47)
--- NOTE | 2019-04-07 14:17 | PGE_ITS ---
Date of Service Date of service: 04/07/19 Time of Service: 14:07 Assessment and Plan (1) Atrial flutter: Current visit: Yes Status: Acute New diagnosis, along with subjective dyspnea, evidence of crackles on exam, and elevated BNP. Initial Troponin negative. Converted back to sinus initially, but again in a rapid rate. Continue Cardizem gtt and titrate, initiate BB, and continue to monitor. ECHO ordered and pending. Continue weight based Enoxaparin until significant valvular disease has been ruled out. Serial cardiac biomarkers checked and negative. Goal is to transition to oral greg agent and anticoagulation soon. Will also increase IV Lasix, and monitor daily weights, I/O's. (2) Hypothyroidism: Current visit: Yes Status: Chronic Continue replacement therapy. TSH mildly elevated. (3) Dyslipidemia: Current visit: Yes Status: Chronic Continue statin therapy. (4) Bipolar disorder: Current visit: Yes Status: Chronic Currently on therapy with Olazapine, Depakote. Also on Bupropion, Lorazepa m for underlying depression. Holding Benztropine due to potential for contributing to tachycardia, although currently on minimal dosing. (5) DVT prophylaxis: Current visit: Yes Status: Acute On therapeutic Enoxaparin. GI prophylaxis with PPI. Subjective Interval history since last seen: 69 year old man with a prior history of Hypothyroidism and bipolar disorder, admitted from [facility] Emergency Department on 04/06 with a new diagnosis of Afib. [facility]. Lin is [facility], and has a Past Medical History significant for Bipolar Disorder, Hypothyroidism on replacement therapy, prior Cannabis abuse, Hematuria, dyslipidemia, and prior SBO. He presented to the ED with a 2 day history of worsening dyspnea and fatigue, along with subjective constipation. Work-up was significant for a normal WBC, electrolytes, Magnesium, Troponin, LFTs, and urinalysis. His TSH was minimally elevated on replacement therapy. His BNP however was elevated at 3620, and his CXR showed cardiomegally. He was referred for admission for further evaluation and treatment. The patient converted to sinus rhythm overnight, but has since lapsed back into rapid Afib despite continuation of Dilt gtt. He did not diurese much with low dose IV Lasix overnight. No other events reported. Remains afebrile. Exam Narrative Exam Narrative: General: Patient appears comfortable, AAOX3, NAD Neck: Supple CV: Irregular and tachycardic, S1S2, No rubs, murmurs, or gallops. Pulmonary: Continued bibasilar crackles, no wheezing Abdomen: + Bowel Sounds, soft, nontender, nondistended Vascular: No lower extremity edema Psych: Normal mood and affect. Objective Objective Clinical Data: Abnormal lab results 04/06/19 04/06/19 04/07/19 Range/Units 10:15 10:15 06:40 RBC (4.50-6.00) m/cumm Hgb (13.5-17.5) g/dL Hct (40.0-50.0) % MCV (80-95) fL MCHC (32.0-36.0) g/dL Absolute Monocytes (0.11-0.7) k/cumm BUN 22 H D (7-18) mg/dL Glucose 121 H (70-100) mg/dL TSH 4.89 H (0.358-3.74) uIU/mL Free T4 0.75 L (0.76-1.46) ng/dL 04/07/19 Range/Units 06:40 RBC 3.74 L (4.50-6.00) m/cumm Hgb 11.6 L (13.5-17.5) g/dL Hct 37.3 L (40.0-50.0) % MCV 99.7 H (80-95) fL MCHC 31.1 L (32.0-36.0) g/dL Absolute Monocytes 0.77 H (0.11-0.7) k/cumm BUN (7-18) mg/dL Glucose (70-100) mg/dL TSH (0.358-3.74) uIU/mL Free T4 (0.76-1.46) ng/dL Vital Signs Temperature 36.3 C L 04/07/19 12:15 Temperature Source Temporal Artery Scan 04/07/19 07:30 Pulse 74 04/07/19 12:01 Pulse 97 H 04/07/19 12:01 Respiratory Rate 22 04/07/19 12:15 Respiratory Effort Non-Labored 04/07/19 12:15 Respiratory Depth Normal 04/07/19 12:15 Respiratory Pattern Normal 04/07/19 12:15 Blood Pressure 94/54 L 04/07/19 12:01 Blood Pressure Mean 63 04/07/19 12:01 Blood Pressure Position Supine 04/07/19 03:00 Pulse Oximetry 95 04/07/19 12:15 Oxygen Delivery Method Room Air 04/07/19 12:15 Oxygen Flow Rate 0 04/07/19 12:15 Pain Level 0 04/07/19 12:15 Intake & Output 04/06/19 04/07/19 04/07/19 23:59 11:59 23:59 Intake Total 790.166 / 1781.680 0020.834 / 1975.834 277.0 / 1975.834 Output Total 2400 / 2400 3525 / 3525 Balance -1609.834 / -1099.084 -1826.166 / -1549.166 277.0 / -1549.166 Weight 83.9 kg 83.8 kg Intake: IV 130.166 / 640.916 48.834 / 85.834 37.0 / 85.834 Oral 660 / 660 1650 / 1890 240 / 1890 Output: Urine 2400 / 2400 3525 / 3525 Other: Urine Color Yellow Pale Straw Urine Appearance Clear Clear Urine Odor Strong None Comment voids in lg amts Voiding in urinal. Voiding Methods Bedside Commode Urinal Laboratory Results WBC 7.36 k/cumm (4.4-10.8) 04/07/19 06:40 RBC 3.74 m/cumm (4.50-6.00) L 04/07/19 06:40 Hgb 11.6 g/dL (13.5-17.5) L 04/07/19 06:40 Hct 37.3 % (40.0-50.0) L 04/07/19 06:40 MCV 99.7 fL (80-95) H 04/07/19 06:40 MCH 31.0 pg (27.0-33.0) 04/07/19 06:40 MCHC 31.1 g/dL (32.0-36.0) L 04/07/19 06:40 RDW 13.2 % (11.8-14.1) 04/07/19 06:40 Plt Count 180 x1000/uL (130-400) 04/07/19 06:40 MPV 10.4 fL (8.0-11.0) 04/07/19 06:40 Immature Gran % 0.1 04/07/19 06:40 Neutrophils % 46.6 04/07/19 06:40 Lymphocytes % 38.5 04/07/19 06:40 Monocytes % 10.5 04/07/19 06:40 Eosinophils % 3.5 04/07/19 06:40 Basophils % 0.8 04/07/19 06:40 Absolute Neutrophils 3.43 k/cumm (1.2-6.7) 04/07/19 06:40 Absolute Lymphocytes 2.83 k/cumm (1.2-3.4) 04/07/19 06:40 Absolute Monocytes 0.77 k/cumm (0.11-0.7) H 04/07/19 06:40 Absolute Eosinophils 0.26 k/cumm (0.0-0.7) 04/07/19 06:40 Absolute Basophils 0.06 k/cumm (0.0-0.2) 04/07/19 06:40 Differential Comment Manual differential 04/06/19 10:15 RBC Morphology Normal 04/06/19 10:15 PT 11.3 sec (9.3-11.0) H 04/06/19 10:15 INR 1.1 (0.9-1.1) 04/06/19 10:15 APTT 23.2 sec (21.0-31.4) 04/06/19 10:15 Sodium 144 mmol/L (136-145) 04/07/19 06:40 Potassium 3.8 mmol/L (3.5-5.1) 04/07/19 06:40 Chloride 107 mmol/L (98-107) 04/07/19 06:40 Carbon Dioxide 28.4 mmol/L (21.0-32.0) 04/07/19 06:40 Anion Gap 8.6 mmol/L (3-11) 04/07/19 06:40 BUN 22 mg/dL (7-18) H D 04/07/19 06:40 Creatinine 1.17 mg/dL (0.70-1.30) 04/07/19 06:40 Estimated GFR/1.73 m2 >= 60.00 (mL/min/1.73m2) 04/07/19 06:40 Glucose 121 mg/dL (70-100) H 04/07/19 06:40 Calcium 9.0 mg/dL (8.5-10.1) 04/07/19 06:40 Magnesium 2.2 mg/dL (1.8-2.4) 04/07/19 06:40 Total Bilirubin 0.7 mg/dL (0.2-1.0) 04/06/19 10:15 AST 19 U/L (15-37) 04/06/19 10:15 ALT 26 U/L (12-78) 04/06/19 10:15 Alkaline Phosphatase 52 U/L (46-116) 04/06/19 10:15 Troponin I < 0.05 ng/mL (0.00-0.06) 04/07/19 06:40 NT-Pro-B Natriuret Pep 3620 pg/mL (-299) H 04/06/19 10:15 Total Protein 6.8 g/dL (6.4-8.2) 04/06/19 10:15 Albumin 3.7 g/dL (3.4-5.0) 04/06/19 10:15 TSH 4.89 uIU/mL (0.358-3.74) H 04/06/19 10:15 Free T4 0.75 ng/dL (0.76-1.46) L 04/06/19 10:15 Urine Color Yellow (Yellow) 04/06/19 11:43 Urine Clarity Clear (Clear) 04/06/19 11:43 Urine pH 7.0 (5-8) 04/06/19 11:43 Ur Specific [place] 1.015 (1.005-1.025) 04/06/19 11:43 Urine Protein Negative mg/dL (Negative) 04/06/19 11:43 Urine Ketones Negative mg/dL (Negative) 04/06/19 11:43 Urine Blood Negative (Negative) 04/06/19 11:43 Urine Nitrite Negative (Negative) 04/06/19 11:43 Urine Bilirubin Negative (Negative) 04/06/19 11:43 Urine Urobilinogen 0.2 EU/dL (Up TO 0.2) 04/06/19 11:43 Ur Leukocyte Esterase Negative (Negative) 04/06/19 11:43 Urine Glucose Negative mg/dL (Negative) 04/06/19 11:43
--- NOTE | 2019-04-07 16:35 | PHARADMIT ---
Admission Pharmacy Clinical Review New onset Afib Code Status Full Code Current Weight 83.8 kg Renally Cleared and Narrow Therapeutic Index Meds QTc Value / Action Taken QTC 489-abnormal ekg BP Control, Fever BP 94/54 HR ranges 60 to >100 Afebrile Electrolytes reviewed WNL DVT Prophylaxis weight based Lovenox 85mg [id number] need to transition to oral agent Opiate Usage / Scheduled Bowel Regimen Ordered Plt/SCr for Heparin / Enoxaparin Plt 180 SCr 1.17 INR for Warfarin H/H stable, WBC/Bands H/H 11.6/37.3 WBC 7.36 Antibiotic appropriateness Cultures and Sensitivities Urinalysis negative Surgical ABX d/c within 24 hr DM control / Insulin Dosing Heart Failure (Check EF%) (ISSA's, B-Block, Diuretics) Diltiazem drip-new bag brought up ~2pm (did not make extras in case rate low or paused) was at 5ml/hr Lasix IV, Metoprolol IV to PO Switch Home Meds Reviewed Depakote ER dose verified with [facility] who pours his meds Home Meds Not Ordered Benztropine held intentionally, Ibuprofen Comments troponin neg Probnp 3620 on admission Hx: bipolar w/Zyprexa and Depakote
[2019-04-07] MEDS: Normal Saline Flush 10 ML SYR IVP ×2 (17:49→17:57)
[2019-04-07] MEDS: Simvastatin 20 MG TAB 40 MG PO (20:47)
[2019-04-07] MEDS: LORazepam 1 MG TAB PO (21:34)
[2019-04-07] MEDS: OLANZapine 10 MG TAB 40 MG PO (21:34)
[2019-04-07] MEDS: Divalproex Sodium 500 MG TAB.ER.24H PO (21:35)
[2019-04-08] VITALS (86 sets, daily range): BP systolic 61–117; BP diastolic 39–87; PULSE 60–154; RESP 2–26; TEMP 36.4–36.6; O2SAT 71–100
[2019-04-08] MEDS: LORazepam 1 MG TAB PO (00:45)
[2019-04-08] MEDS: Enoxaparin 100 MG/ML SYR 85 MG SC ×2 (00:50→13:08)
[2019-04-08] MEDS: LORazepam 1 MG TAB PO/SL ×2 (02:23→05:13)
[2019-04-08] MEDS: Levothyroxine 25 MCG TAB PO (05:13)
[2019-04-08] MEDS: Metoprolol 25 MG TAB PO (05:13)
[2019-04-08 05:57] LABS: Abs Immature Grans 0.02 k/cumm (0.0-0.09); Absolute Basophil Count 0.09 k/cumm (0.0-0.2); Absolute Eosinophil Count 0.32 k/cumm (0.0-0.7); Absolute Lymphocyte Count 2.91 k/cumm (1.2-3.4); Absolute Monocyte Count 1.03 k/cumm (0.11-0.7); Absolute Neutrophil Count 4.92 k/cumm (1.2-6.7); Anion Gap 11.1 mmol/L (3-11); BUN 29 mg/dL (7-18); CO2 27.9 mmol/L (21.0-32.0); CREATININE 1.31 mg/dL (0.70-1.30); Calcium 9.3 mg/dL (8.5-10.1); Chloride 105 mmol/L (98-107); Eosinophils % 3.4; Estimated GFR 54.58 (mL/min/1.73m2); Glucose 127 mg/dL (70-100); HCT 41.8 % (40.0-50.0); HGB 13.9 g/dL (13.5-17.5); Immature Grans % 0.2; Lymphocytes % 31.3; Magnesium 2.2 mg/dL (1.8-2.4); Mean Corp. HGB Concentration 33.3 g/dL (32.0-36.0); Mean Corpuscular Volume 96.3 fL (80-95); Monocytes % 11.1; Platelet Count 209 x1000/uL (130-400); Potassium 4.1 mmol/L (3.5-5.1); RBC 4.34 m/cumm (4.50-6.00); Sodium 144 mmol/L (136-145); White Blood Cell Count 9.29 k/cumm (4.4-10.8)
--- NOTE | 2019-04-08 08:50 | DI.CT_ITS ---
SYMPTOM/DIAGNOSIS: ALTERED MENTAL STATUS CRANIAL CT 04/08: Noncontrast cranial CT was performed. There is marked generalized cerebral atrophy which has progressed since examination of 03/2016 and is quite marked for the patient's age. There is no evidence of acute intracranial hemorrhage, mass affect or midline shift. No calvarial fracture seen. Paranasal sinuses and mastoid air cells are generally well aerated except for apparent retention cysts and mild mucoperiosteal thickening of maxillary antra bilaterally. CONCLUSION: No evidence of acute intracranial injury
[2019-04-08] MEDS: LORazepam 2 MG/ML VIAL 1 MG IVP ×2 (09:01→09:19)
[2019-04-08] MEDS: Normal Saline Flush 10 ML SYR IVP (09:18)
[2019-04-08] MEDS: Gabapentin 400 MG CAP 800 MG PO (09:21)
[2019-04-08] MEDS: buPROPion-XL 150 MG TABCR PO (09:21)
--- NOTE | 2019-04-08 10:57 | W.PM.DS.N ---
Date of service: 04/08/19 Time of Service: 10:57 DS: Diagnosis Discharge Diagnosis (1) Atrial flutter: Status: Acute (2) Hypothyroidism: Status: Chronic (3) Dyslipidemia: Status: Chronic (4) Bipolar disorder: Status: Chronic (5) DVT prophylaxis: Status: Acute (6) Alcohol withdrawal: Status: Suspected Discharge Plan Disposition Patient Disposition: [facility] [place] Condition: Poor Discharge Details Chief Complaint: RespSymp Reason For Visit: AFIB WITH RVR Admit Date/Time: 04/06/19 13:51 Admit Provider: Darren Johnson Attending Provider: Darren Johnson Primary Care Provider: None,None ED Provider: Mitchell Richards Hospital Course Hospital Course: Chief Complaint: Dyspnea HPI: 69 year old man with a prior history of Hypothyroidism and bipolar disorder, admitted from [facility] Emergency Department on 04/06/2019 with a new diagnosis of Afib. Mr. Lin is a [place] patient, and has a Past Medical History significant for Bipolar Disorder, Hypothyroidism on replacement therapy, prior Cannabis abuse, Hematuria, and dyslipidemia. He presented to the ED with a 2 day history of worsening dyspnea and fatigue, along with subjective constipation. Work-up was significant for a normal WBC, electrolytes, Magnesium, Troponin, LFTs, and urinalysis. His TSH was minimally elevated on replacement therapy. His BNP however was elevated at 3620, and his CXR showed cardiomegally. He was referred for admission for further evaluation and treatment. Following admission the patient diuresed well with an improved exam. He initially converted to sinus rhythm, and was initiated on oral BB therapy to be titrated. He was also anticoagulated with weight based therapeutic dose Enoxaparin while awaiting results of his ECHO. However, he did lapse back into Afib despite still remaining on Diltiazem gtt. Of note, Mr. Lin denied any alcohol use on his initial intake. Overnight on his second hospital day the patient developed an acutely altered mental status, became diaphoretic, and his HR worsened. He initially admitted to nursing that he drank 1-2 glasses of wine nightly, then later admitted that his current state 'didn't feel like alcohol withdrawl'. This morning he is delirious and required administration of IV Lorazepam. A CT of the head was checked and negative for any acute changes. It is expected that his length of stay at this point may be prolonged, and as [facility] is [facility] calls were placed and he was readily accepted in transfer to the [place] at [place]. Hospital Course: (1) Altered Mental Status: Presentation consistent with possible EtOH withdrawl. Patient was placed on the CIWA protocol, and due to need received IV Lorazepam. Stat CT of the head was negative for acute changes, and the patient does not appear to be infected (normal urinalysis, no infiltrate by initial CXR, lack of leukocytosis, and afebrile). Will maintain on Lorazepam for now, and monitor carefully for oversedation. Oral Oxazepam and a Gabapentin taper were also ordered, but mental status is not conducive to oral intake at this time. At the time of transfer the patient is still able to protect his airway, and has not been intubated. Unfortunately, as there was no history of EtOH or drug abuse, an alcohol level or Urine Drug Screen were not obtained. Will transport with additional IV Lorazepam if needed. (2) Atrial flutter: New diagnosis, along with subjective dyspnea, evidence of crackles on exam, and elevated BNP. Serial Troponins negative. Patient initially converted on Cardizem gtt, but lapsed back into flutter while still on Cardizem. ECHO obtained and remarkable for an LVEF of 40%, with moderately diffuse hypokinesis WITH regional variations. Also with moderate to severe MR. He remains on therapeutic anticoagulation with Enoxaparin with daily home aspirin discontinued, and current titration of Dilt gtt is limited by blood pressures (SBP 90-110's). He was also diuresed, which is likely contributing to relatively low blood pressures. (3) CHF: Unsure of etiology in patient with potential EtOH abuse. Also with abnormal appearing ECG and regional wall motion abnormalities on ECHO. Ruled out for ACS on serial cardiac biomarkers at time of admission, but would benefit from ischemic evaluation when stable. TSH mildly elevated on replacement therapy for Hypothyroidism. May be tachy mediated as well as unclear exactly how long the patient has been in Afib. Continue to diurese as allowed by blood pressure and renal function. (4) ARMINDA: Mildly elevated creatinine in setting of diuresis, and potential poor perfusion from CHF and concurrent tachycardia. Monitor closely. Did not hydrate in setting of CHF. (5) Hypothyroidism: Continue replacement therapy. TSH mildly elevated. (3) Dyslipidemia: Continue statin therapy. (4) Bipolar disorder: Currently on therapy with Olazapine, Depakote. Also on Bupropion, Lorazepam for underlying depression. Holding Benztropine currently due to potential for contributing to tachycardia, although currently on minimal dosing. (5) DVT prophylaxis: On therapeutic Enoxaparin. Home Meds and New Rx's Prescriptions: Continued aspirin [Aspir-81] 81 MG tablet,delayed release (DR/EC) 81 mg PO DAILY RF: 0 simvastatin 20 MG tablet 40 mg PO DAILY RF: 0 lorazepam 1 MG tablet 1 mg PO .QHS RF: 0 ibuprofen 800 MG tablet 800 mg PO TID Qty: 30 RF: 0 olanzapine [Zyprexa] 20 MG tablet 40 mg PO .QHS RF: 0 bupropion HCl 150 MG tablet extended release 24 hr 150 mg PO DAILY RF: 0 levothyroxine 25 MCG tablet 25 mcg PO DAILY Qty: 30 RF: 0 diphenhydramine HCl 25 MG capsule 1 tab PO PRN PRNRF: 0 benztropine 0.5 mg Tablet 0.5 mg PO BID RF: 0 divalproex [Depakote ER] 500 mg Tablet Extended Release 24 Hr 500 mg PO HS RF: 0 Discharge Instructions Activity:: Bed Rest Equipment/Supplies:: No Equipment Needed Diet:: NPO Currently Discharge Orders Discharge Orders: Discharge Order (Routine); Ordered 04/08/19 Ordered By: Darren Johnson Exam Narrative Exam Narrative: General: Patient appears somnolent - previously reported to be agitation prior to receiving IV Lorazepam. Not responding to verbal but is responsive to painful stimuli. Neck: Supple CV: Irregular and tachycardic, S1S2, 3/6 LLSB Murmur Pulmonary: Continued bibasilar crackles on limited anterior and lateral exam, no wheezing Abdomen: + Bowel Sounds, soft, nontender, nondistended Vascular: No lower extremity edema. DS: Data Vitals/I&O Vitals and I&O: Vital Signs Temperature 36.6 C 04/08/19 08:12 Temperature Source Temporal Artery Scan 04/08/19 08:12 Pulse 142 H 04/08/19 09:33 Pulse 126 H 04/08/19 09:33 Respiratory Rate 22 04/08/19 09:33 Respiratory Effort 04/08/19 08:12 Respiratory Depth Normal 04/08/19 08:12 Respiratory Pattern Apnea 04/08/19 08:12 Blood Pressure 100/68 04/08/19 09:33 Blood Pressure Mean 76 04/08/19 09:33 Blood Pressure Position Supine 04/08/19 08:12 Pulse Oximetry 94 L 04/08/19 08:12 Oxygen Delivery Method Room Air 04/08/19 08:12 Oxygen Flow Rate 0 04/08/19 08:12 Pain Level 0 04/08/19 03:23 Intake & Output 04/07/19 04/07/19 04/08/19 11:59 23:59 11:59 Intake Total 1698.834 / 2847.418 1148.584 / 2847.418 266.917 / 266.917 Output Total 3525 / 7025 3500 / 7025 600 / 600 Balance -1826.166 / -4177.582 -2351.416 / -4177.582 -333.083 / -333.083 Weight 83.8 kg 82 kg Intake: IV 48.834 / 117.418 68.584 / 117.418 6.917 / 6.917 Oral 1650 / 2730 1080 / 2730 260 / 260 Output: Urine 3525 / 7025 3500 / 7025 600 / 600 Other: Urine Color Pale Yellow Light Keisha Urine Appearance Clear Clear Clear Urine Odor None Normal None Comment voids in lg amts Voiding in urinal. RNas Standby Guard as Pt is mildly unsteady, some what impulsive and forgets hes attatched to the IV and monitoring cables. INCONTINENT X 2. CONDOM CATH PLACED. Voiding Methods Urinal Urinal Incontinent Completed studies during hospitalization [Text1]: Exam(s) 04/06 a RAD:XR portable chest AP SYMPTOMS/DIAGNOSIS: AFIB, PALPITATIONS PORTABLE AP CHEST: The heart appears mildly enlarged. The lungs are clear and well expanded. CONCLUSION: Cardiomegaly, no evidence of acute process. --------- Exam(s) a US:US echocardiogram Date of study: 04/07/2019 Transthoracic Echocardiography M-mode, complete 2D, complete spectral Doppler, and color Doppler *STUDY CONCLUSIONS* Impressions: The patient was in atrial fibrillation/tachycardia during parts of the study. This rhythm can interfere with accurate global and segmental wall motion analysis. Summary: 1. Left ventricle: The cavity size was mildly dilated. Wall thickness was increased in a pattern of mild LVH. Systolic function was mildly to moderately reduced. The estimated ejection fraction was 40-45%. Moderate diffuse hypokinesis with regional variations. 2. Aortic valve: Mild focal thickening involving the noncoronary cusp. There was trivial regurgitation. Valve area (VTI): 2.6cm^2. Valve area (Vmax): 3.1cm^2. Valve area (Vmean): 3cm^2. 3. Mitral valve: There was moderate to severe regurgitation. 4. Left atrium: The atrium was mildly dilated. 5. Right ventricle: The cavity size was normal. Wall thickness was normal. Systolic function was normal. 6. Pulmonary arteries: Pulmonary systolic pressure was at the upper limits of normal. PA peak pressure: 36mm Hg (S). 7. Pericardium, extracardiac: A trivial pericardial effusion was identified. Exam(s) 04/08/[address]:CT head wo SYMPTOM/DIAGNOSIS: ALTERED MENTAL STATUS CRANIAL CT 04/08: Noncontrast cranial CT was performed. There is marked generalized cerebral atrophy which has progressed since examination of 03/2016 and is quite marked for the patient's age. There is no evidence of acute intracranial hemorrhage, mass affect or midline shift. No calvarial fracture seen. Paranasal sinuses and mastoid air cells are generally well aerated except for apparent retention cysts and mild mucoperiosteal thickening of maxillary antra bilaterally. CONCLUSION: No evidence of acute intracranial injury Labs on day of discharge: Labs from last 24 hours 04/08/19 04/08/19 05:35 05:35 WBC 9.29 RBC 4.34 L Hgb 13.9 D Hct 41.8 MCV 96.3 H D MCH 32.0 MCHC 33.3 RDW 13.0 Plt Count 209 MPV 10.0 Immature Gran % 0.2 Neutrophils % 53.0 Lymphocytes % 31.3 Monocytes % 11.1 Eosinophils % 3.4 Basophils % 1.0 Absolute Neutrophils 4.92 Absolute Lymphocytes 2.91 Absolute Monocytes 1.03 H Absolute Eosinophils 0.32 Absolute Basophils 0.09 Sodium 144 Potassium 4.1 Chloride 105 Carbon Dioxide 27.9 Anion Gap 11.1 H BUN 29 H Creatinine 1.31 H Estimated GFR/1.73 m2 54.58 Glucose 127 H Calcium 9.3 Magnesium 2.2 PFSH Medical History Hematuria (Chronic) History of cannabis abuse (Chronic) Hypothyroidism (Chronic) Bipolar disorder (Chronic) Social History Smoking/Tobacco Use Status: Former Tobacco Use Alcohol Intake: never Drug use: Never Substance use type: does not use Do you feel safe at home: Yes Do you feel safe in your relationship?: Yes Additional Social history: . No children. Denies tobacco, alcohol, and illicit drugs. 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
--- NOTE | 2019-04-08 11:40 | NUR.NOTE ---
Nursing Note: [id number] Bee, supervisor paper products spoke with Jonathan, the director transportation at [facility] who approved us to arrange transport of patient to [place].
[2019-04-08] MEDS: PROPOFOL 1,000 MG/100 ML BTL 50 MG IVPB ×2 (14:00→17:32)
--- NOTE | 2019-04-08 14:11 | DI.RAD_ITS ---
SYMPTOMS/DIAGNOSIS: INTUBATION PORTABLE SUPINE AP CHEST: There is an NG tube. The tip of which overlies the gastric fundus. There is an endotracheal tube in position. The tip of which lies approximately 7.5 cm above the susan and which may be advanced. The heart is mildly enlarged. Lungs are grossly clear and well expanded.
--- NOTE | 2019-04-08 14:35 | PDOC.CMDIS ---
- If Service Date Differs Date of service: 04/08/19 Time of Service: 14:36 LACE Index Scoring Tool - Questions: Length of Stay (in days): 2 Acuity (Admit via E.D.?): Yes E.D. Visits: 1 - Answers: Total Score: 6 Risk of Readmission: Low Risk Care Management Discharge Reason for Hospitalization: atrial flutter Discharge Plan: Jose Antonio is being transferred to the [facility] in [place]. Patient/Family Education Needs: as per [place] hospital discharge plan. - MH Services (Omit if N/A) Current MH Services: [employer]INE [employer] Referred to Internal [facility] (ED embedded) case managers?: No
--- NOTE | 2019-04-08 14:41 | CMDISCH_ITS ---
- If Service Date Differs Date of service: 04/08/19 Time of Service: 14:36 LACE Index Scoring Tool - Questions: Length of Stay (in days): 2 Acuity (Admit via E.D.?): Yes E.D. Visits: 1 - Answers: Total Score: 6 Risk of Readmission: Low Risk Care Management Discharge Reason for Hospitalization: atrial flutter Discharge Plan: Jose Antonio is being transferred to the [facility] in [place]. Patient/Family Education Needs: as per [place] hospital discharge plan. 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
[2019-04-08] MEDS: Vasopressin 20 UNITS/ML VIAL (14:50)
[2019-04-08] MEDS: PROPOFOL 1,000 MG/100 ML BTL 100 MG (14:55)
== END 2019-04-08 17:15 | disposition short-term general hospital (02) | DRG 309 ==
LOC: ER 15:02 → ICU 15:35
PROVIDERS: Admitting Provider Internal Medicine; Emergency Provider Emergency Medicine; Visit Provider Internal Medicine
DX: F10.231 Alcohol dependence with withdrawal delirium (principal); N17.9 Acute kidney failure, unspecified; I48.92 Unspecified atrial flutter; I48.91 Unspecified atrial fibrillation; E03.9 Hypothyroidism, unspecified; F31.9 Bipolar disorder, unspecified; E78.5 Hyperlipidemia, unspecified
CPT/HCPCS: 36415; 71045; 80048; 80053; 93005; 96365; 96366; 96368; 99222; 99232; 99239; 99285; 70450; 81003; 83735; 83880; 84439; 84443; 84484; 85025; 85610; 85730; 93010; 93306; 94002; J1650; J1940; J1941; J2060; J3490

== ENCOUNTER 2019-07-05 08:07 | Outpatient (REF) | payer OTHER, SELFPAY ==
[2019-07-05 13:20] LABS: Anion Gap 10.6 mmol/L (3-11); BUN 11 mg/dL (7-18); CO2 25.4 mmol/L (21.0-32.0); CREATININE 1.07 mg/dL (0.70-1.30); Calcium 9.1 mg/dL (8.5-10.1); Chloride 105 mmol/L (98-107); Glucose 112 mg/dL (70-100); Potassium 3.9 mmol/L (3.5-5.1); Sodium 141 mmol/L (136-145)
[2019-07-05 14:09] LABS: Abs Immature Grans 0.01 k/cumm (0.0-0.09); Absolute Basophil Count 0.08 k/cumm (0.0-0.2); Absolute Eosinophil Count 0.13 k/cumm (0.0-0.7); Absolute Monocyte Count 0.63 k/cumm (0.11-0.7); Basophils % 1.1; Eosinophils % 1.7; HGB 13.4 g/dL (13.5-17.5); Immature Grans % 0.1; Lymphocytes % 29.1; Mean Corp. HGB Concentration 33.5 g/dL (32.0-36.0); Mean Corpuscular Hemoglobin 31.2 pg (27.0-33.0); Mean Platelet Volume 11.6 fL (8.0-11.0); Monocytes % 8.3; Neutrophils % 59.7; Platelet Count 271 x1000/uL (130-400); RBC Distribution Width 14.8 % (11.8-14.1); White Blood Cell Count 7.55 k/cumm (4.4-10.8)
== END 2019-07-05 08:27 ==
LOC: LBN 08:07
PROVIDERS: PCP Family Medicine; Visit Provider Nurse Practitioner Adult Health
DX: G21.19 Other drug induced secondary parkinsonism (principal)
CPT/HCPCS: 80048; 85025

== ENCOUNTER 2019-08-18 11:22 | Observation (INO) | payer MEDICARE, SELFPAY ==
[2019-08-18] VITALS (15 sets, daily range): BP systolic 94–110; BP diastolic 59–78; PULSE 78–104; RESP 14–29; TEMP 36.5–36.6; O2SAT 94–97
--- NOTE | 2019-08-18 11:49 | DI.RAD_ITS ---
EXAM: XR LUMBAR SPINE COMPLETE CLINICAL HISTORY: pain, fall TECHNIQUE: The study was performed according to the usual protocol. COMPARISON: LUMBAR SPINE AP, LAT from 03/14/2016 RENAL COLIC WO CONTRAST from 12/17/2016 FINDINGS: Five views were obtained. There is disc space narrowing at L5-S1. This finding appears to have been present on prior CT of December 2016. Mild chronic compression fracture of L1 also noted, unchanged fr om previous CT. Moderate endplate hypertrophy noted at multiple levels, facet hypertrophic degenerat tuyet changes also noted throughout the lumbar region. No evidence of spondylolysis or spondylolisthes is. There is a slight left convex lumbar scoliosis. IMPRESSION: No evidence of acute fracture. Old slight L1 vertebral compression fracture. Disc degenerative damon ges at L5-S1.
--- NOTE | 2019-08-18 11:49 | DI.CT_ITS ---
EXAM: CT HEAD WO CLINICAL HISTORY: fall, on blood thinner TECHNIQUE: Noncontrast cranial CT was performed. COMPARISON: CT HEAD WO from 04/08/2019 FINDINGS: There is moderate cerebral atrophy most prominent involving the frontal lobes. No evidence of acute intracranial hemorrhage, mass effect or midline shift. The orbital and temporal bone structures appe ar intact. Paranasal sinuses and mastoid air cells are fairly well aerated as visualized. IMPRESSION: No evidence of acute intracranial process.
--- NOTE | 2019-08-18 11:49 | DI.RAD_ITS ---
EXAM: XR HIP LT COMPLETE AP PELVIS CLINICAL HISTORY: fall, pain, injury TECHNIQUE: COMPARISON: THORACIC SPINE from 03/14/2016 FINDINGS: Two views were obtained. There are mild degenerative changes of both hips. No acute fracture identi fied. IMPRESSION:
--- NOTE | 2019-08-18 11:49 | DI.RAD_ITS ---
EXAM: XR ELBOW RT COMPLETE CLINICAL HISTORY: fall, injury TECHNIQUE: The study was performed according to the usual protocol. COMPARISON: No exams were available for comparison FINDINGS: Three views were obtained. There is no evidence of an elbow joint effusion or hemarthrosis. There a re degenerative changes of the joints of the elbow. There is some deformity of the radial head, this is likely on a degenerative basis, nondisplaced fracture is not entirely excluded. Appropriate foll ow-up studies or CT suggested.
[2019-08-18] MEDS: Acetaminophen 500 MG TAB 1000 MG PO (11:55)
--- NOTE | 2019-08-18 11:59 | W.ED.GENAD ---
Discharge Plan Disposition Patient Disposition: OTHER Condition: Stable Discharge Details Chief Complaint: Orthopedic Clinical Impression: Frequent falls, Gait disturbance, Weakness, Contusion of elbow, right, Injury of hip, left Admit Date/Time: 08/18/19 20:07 Admit Provider: Evin Greenberg Attending Provider: Evin Greenebrg Primary Care Provider: Elizabeth Bolton ED Provider: Long Morales Hospital Course Hospital Course: Mr Lin is a 69 year old male with PMHx of atrial flutter on anticoagulation with eliquis, as well as bipolar disorder, drug-induced Parkinsonism, hypothyroidism, who was observed on [facility] hospitalist service from 08/18/19 until 08/19/19 after presenting to [facility] with falls and ambulatory dysfunction for some time. He has no focal neurological deficits to suggest a stroke. His presentation is more consistent with Parkinsonism. He states that his last drink was more than 100 days ago, so we do not feel that he is in danger of alcohol withdrawal at this time. His labs were normal, and he is medically cleared for [facility] [place] today. No changes are being made ot his medications on discharge. Discharge Data Discharge Date/Time-TO BE ENTERED AT DEPARTURE: 08/18/19 20:45 Medical Decision Making <KEENAN Hernandez - Last Filed: 08/19/19 16:27> This is a 69-year-old gentleman who lives alone. He is on Eliquis. He reports yesterday walking with his cane into his kitchen falling backwards after losing his balance striking his right elbow as well as his left low back and hip area. Patient reports he frequently loses his balance. Patient reports he currently walks with a cane but feels quite unsteady when walking. Patient reports his house is not conducive to using a walker. Patient currently has single level living however the bathroom on his downstairs level is broken therefore he has been ambulating up and down the stairs for the last week which he finds significantly difficult. Patient denies any change from his baseline unsteadiness. Patient does have visiting nursing care and is waiting to be placed with long-term housing from the [place] due to safety concerns at home. Patient is working with his doctors on this concern. Patient recently discharged from rehab 1 week ago. Today patient presents complaining of right elbow pain as well as hip pain. X-rays were ordered. Head CT also ordered given use of blood thinners and fall Patient CT of his head is ultimately unremarkable for intracranial emergency at this time. X-rays of elbow and pelvis were reviewed. Elbow x-ray reveals a question of an abnormality at the radial head however patient has full flexion extension of the elbow with minimal pain. Supination pronation with no pain at the elbow. I do not feel this patient likely has an acute radial head fracture. I did discuss this with the patient who agrees. Recommended follow-up as an outpatient if not improved in 1 week. Patient reports his understanding. Sling provided. Patient was evaluated by physical therapy in the emergency room for concern of unsteadiness and safety concerns at home. Patient signed out pending PT evaluation. Patient was evaluated by foster care case manager who agrees that the patient likely is unsafe to be living at home and will work to find patient appropriate bed placement with [facility]hab or [facility]. Pending placement. <KEENAN Clark - Last Filed: 08/18/19 21:55> Patient received in signout from Gladis Ortiz PA-C. See her note for complete HPI and PE details. In brief, patient is a 69-year-old gentleman who was recently discharged from [facility] who presents to the emergency department with frequent falling at home. He sustained a fall today while at home tripping backwards striking his left hip and right elbow. He is on Eliquis with a A. fib history. Imaging including head CT read as negative. PT evaluated the patient and they agree that he is unfit for home self care. application defense manager has been involved and was able to get the patient placed at the [facility] in [facility] tomorrow morning. Plan is to admit to inpatient floor overnight and transfer first thing in the morning. Case discussed with the hospitalist Dr. Greenberg who will admit HPI <KEENAN Hernandez - Last Filed: 08/19/19 16:27> General Date/Time Provider Initiated Documentation: 08/18/19 11:30. HPI Narrative: 69-year-old gentleman on blood thinners presents to the emergency room for a fall which occurred yesterday in his home. Patient reports he has a baseline unsteady gait for the last several months for which he is been working with his primary care doctor as well as his [facility]. Patient reports yesterday when walking to his kitchen he lost his balance falling backwards. Denies obviously striking his head. Denies obvious loss of consciousness. Patient presents complaining of right elbow pain as well as low back pain and left hip pain. Patient reports he is able to ambulate with mild lower back discomfort. Patient reports right elbow pain specifically when palpating his olecranon. Mild pain with range of motion. Denies numbness, tingling or weakness of extremities at this time. Denies headache or dizziness. Denies neck or back pain. No other concerns or complaints at this time. No abdominal complaints, pain or distention. No chest pain or pain with deep breathing. Related Data Home Medications Medication Instructions Recorded Confirmed apixaban 5 mg tablet 5 mg PO BID 06/30/19 08/18/19 diltiazem HCl 180 mg 180 mg PO DAILY 06/30/19 08/18/19 capsule,extended release 24 hr levothyroxine 25 mcg tablet 25 mcg PO DAILY 06/30/19 08/18/19 melatonin 3 mg capsule 3 mg PO HS PRN 06/30/19 08/18/19 acetaminophen 325 mg capsule 650 mg PO Q4H PRN cap 08/10/19 08/18/19 sennosides 8.6 mg tablet 8.6 mg PO BID 08/10/19 08/18/19 amiodarone 400 mg PO DAILY 08/18/19 08/18/19 metoprolol succinate 25 mg PO DAILY 08/18/19 08/18/19 carbidopa-levodopa 1 tab PO BID 08/19/19 08/19/19 Allergies Allergy/AdvReac Type Severity Reaction Status Date / Time plasma Allergy Unknown Uncoded 08/18/19 11:36 tuna fish AdvReac Intermediate Nausea Uncoded 08/18/19 11:36 General Stated Complaint: Orthopedic DAWNA: 3 Review of Systems <KEENAN Hernandez - Last Filed: 08/19/19 16:27> All systems reviewed & are unremarkable except as noted in HPI and below Constitutional Constitutional: Denies chills, Denies fever(s), Reports frequent falls, Denies headache(s) and Denies lethargy Eyes Eyes: Denies blurry vision and Denies change in vision ENT Ears, Nose, Mouth, and Throat: Denies headache(s), Denies neck pain and Denies tinnitus Cardiovascular Cardiovascular: Denies dyspnea on exertion Respiratory Respiratory: Denies cough, Denies hemoptysis, Denies dyspnea on exertion and Denies wheezing Gastrointestinal Gastrointestinal: Denies abdominal pain, Denies diarrhea, Denies nausea and Denies vomiting Genitourinary Genitourinary: Denies hematuria Musculoskeletal Musculoskeletal: Reports back pain, Denies deformity, Reports joint swelling, Denies limited range of motion, Denies loss of height and Denies neck pain Neurologic Neurologic: Reports frequent falls and Denies headache(s) Allergic/Immunologic Allergic/Immunologic: Denies wheezing PFSH <KEENAN Hernandez - Last Filed: 08/19/19 16:27> Medical History (Updated 08/19/19 @ 10:51 by Irene Tomlin MD) Alcohol dependence (Resolved) Atrial flutter (Chronic) Bipolar disorder (Chronic) Compression fracture of L1 lumbar vertebra (Chronic) old Dyslipidemia (Chronic) Hematuria (Chronic) History of cannabis abuse (Chronic) Hypothyroidism (Chronic) Neuroleptic induced Parkinsonism (Chronic) Surgical History History of surgery on arm (Acute) S/P foot surgery, left (Acute) Social History (Updated 08/18/19 @ 21:51 by Evin Greenberg) Smoking/Tobacco Use Status: Former Tobacco Use Alcohol Intake: current Alcohol Intake frequency: holidays/special occasions only Drug use: Occasionally Substance use type: marijuana Housing: house current occupation: [employer] x 5 years, 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 No children. 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 Well hydrated. Alert and alert. HENMT: Head nomocephalic, normal to inspection. Atraumatic. Hearing grossly normal. EYES: General normal appearance. Alignment normal. Eyelids normal. Conjunctiva normal. PERRLA NECK: Normal visual inspection. FROM. Trachea midline. No Midline tenderness. CHEST: Normal insepection of the chest. No pain with palpation of ribs RESP: Normal respiratory effort. Speaking full sentences. No cough. No audible wheezing. No retractions. Breath sounds full, equal. No rhonchi, rales or wheezing CARDIO: No JVD. Regular rate and rhythm. No murmurs MUSCULOSKELETAL: Normal Gait. FROM of all extremities. No shoulder pain with palpation bilaterally. No humeral pain with palpation bilaterally. Right olecranon tenderness with palpation, mild swelling over the olecranon bursa. Supination pronation intact at the right elbow. Flexion extension intact at the right elbow mild pain with full extension. No forearm pain with palpation wrist pain with palpation or hand pain with palpation. Pulses intact distally in bilateral upper extremities. Paper Cutter strength intact bilaterally. Straight leg raise intact bilaterally. Internal/external rotation of the hips intact bilaterally. Mild pain with rotation of the left hip. No knee pain, vann pain or sign of distal injury. Pulses intact in bilateral lower extremities. Strength intact distally. No foot drop SKIN: Normal. Dry. No rashes. NEURO: Alert and awake. Speech clear. PSYCH: Normal affect. Cooperative. Course <KEENAN Hernandez - Last Filed: 08/19/19 16:27> Vital Signs Vital signs: Vital Signs Temperature 36.6 C 08/18/19 11:27 Pulse 99 H 08/18/19 11:27 Respiratory Rate 22 08/18/19 11:27 Blood Pressure 105/74 08/18/19 11:27 Pulse Oximetry 95 08/18/19 11:27 Temperature 36.6 C 08/18/19 11:27 Temperature Source Temporal Artery Scan 08/18/19 11:27 Pulse 103 H 08/18/19 11:46 Pulse 104 H 08/18/19 11:50 Respiratory Rate 14 08/18/19 11:50 Respiratory Effort Non-Labored 08/18/19 11:32 Blood Pressure 110/75 08/18/19 11:46 Blood Pressure Mean 84 08/18/19 11:46 Blood Pressure Position Supine 08/18/19 11:27 Pulse Oximetry 95 08/18/19 11:50 Oxygen Delivery Method Room Air 08/18/19 11:27 Oxygen Flow Rate 0 08/18/19 11:27 Pain Level 9 08/18/19 11:55 Sign Out <KEENAN Hernandez - Last Filed: 08/19/19 16:27> Sign Out Data: Sign Out Comment: Signed out pending disposition per foster care case manager. Currently having PT eval for safety and disposition home. Last updated by Gladis Guallpa PA at 08/18/19 16:23
--- NOTE | 2019-08-18 18:01 | PDOC.ERCMPRO ---
- If Service Date Differs Date of service: 08/18/19 Time of Service: 18:01
--- NOTE | 2019-08-18 19:00 | IN_ITS ---
Date of service: 08/18/19 Time of Service: 16:04 PT Notes Physical Therapy Inpatient Evaluation Date: 08/18/2019 Referring Doctor: Gladis Guallpa MD PT Orders: PT CONSULT: Safety Consult for D/C Precautions: Fall. Standard. Activity as tolerated. Patient Profile/Admitting Diagnosis: Patient is a 69-year-old male presented to the ED on 08/18/2019 due to frequent falls and unsteady gait. Patient was recently been discharged from the [facility] 4 days ago. Patient is diagnosed with gait instability, impaired mobility ADL performance, neuroleptic induced Parkinson's disease, and EtOH dependence. PMHX: Medical History (Updated 08/18/19 @ 21:46 by Evin Greenberg) Alcohol dependence (Chronic) Atrial flutter (Chronic) Bipolar disorder (Chronic) Dyslipidemia (Chronic) Hematuria (Chronic) History of cannabis abuse (Chronic) Hypothyroidism (Chronic) Neuroleptic induced Parkinsonism (Chronic) Surgical History History of surgery on arm (Acute) S/P foot surgery, left (Acute) Social History/Home Situation: Patient lives alone in his 2?story residence with 1 step to enter without rails. He has 4 steps with a rail on the right side at least landing and 5 steps with a rail on the left that brings him to the second floor of his house where he has been using his bathroom. He states that the bathroom floor is broken he is not usable. Equipment Owned/DME: SPC, [facility] Subjective: Patient is agreeable to a PT consult. He admits to being unstable with walking and to frequent falling since his discharge to home 4 days ago. He is agreeable to go back to a SNF as long as it is not a [facility] facility. Objective: General Observation: Patient seen lying in ICU bed. Appears to be anxious as to where he is going to go from here. Mental Status: Alert and oriented x 4 Pain: Reported pain on low back area during movement transitions and short disctance ambulation ROM: Right Upper Extremity: Shoulder Flexion WFL. Shoulder abduction WFL. Elbow flexion WFL. Wrist flexion WFL. Opening and closing of hand WFL. Left Upper Extremity: Shoulder Flexion WFL. Shoulder abduction WFL. Elbow flexion WFL. Wrist flexion WFL. Opening and closing of hand WFL. Right Lower Extremity: Hip flexion WFL. Hip abduction WFL. Knee flexion WFL. Ankle dorsiflexion WFL. Ankle plantarflexion WFL. Left Lower Extremity: Hip flexion WFL. Hip abduction WFL. Knee flexion WFL. Ankle dorsiflexion WFL. Ankle plantarflexion WFL. Strength: Right Upper Extremity: Shoulder flexors 4/5. Shoulder abductors 4/5. Elbow flexors 4/5. Elbow extensors 4/5. Tunneling Machine Operator strong. Left Upper Extremity: Shoulder flexors 4/5. Shoulder abductors 4/5. Elbow flexors 4/5. Elbow extensors 4/5. Tunneling Machine Operator strong. Right Lower Extremity: Hip flexors 3-/5. Hip abductors 3+/5. Knee flexors 3+/5. Knee extensors 3+/5. Ankle dorsiflexors 4-/5. Ankle plantarflexors 4-/5. Left Lower Extremity:Hip flexors 3-/5. Hip abductors 3+/5. Knee flexors 3+/5. Knee extensors 3+/5. Ankle dorsiflexors 4-/5. Ankle plantarflexors 4-/5. Bed Mobility/Transfers: Rolling CGA Supine to sit CGA Sit to supine CGA Sit to stand CGA Stand to sit CGA Bed to chair CGA Chair to bed CGA Gait: Patient tolerated level surface ambulation inside ICU of about 45 feet with CGA, mild unsteadiness but no LOB, and with discomofrt reported on the low back area that subsided with rest. Balance: Static Sitting: Good Dynamic Sitting:Good Static Standing: Fair Dynamic Standing: Fair Special Tests: Mobility Limitations Standardized Measure [facility] 6 clicks Basic Mobility Inpatient Short Form: Raw Score: 18 CMS Score: 47% deficit 4-stage balance test allowed patient to maintain feet together and semi-tandem for 10 seconds. he was however unable to do so with full tandem stance and one-l egged stance. This places patient at risk for falls and would therefore need the use of an assistive device and CGA of another caregiver for safety. Informed Consent/Education: Patient instructed in purpose of PT consult and plan of care. Assessment: Patient is a 69-year-old male presented to the ED on 08/18/2019 due to frequent falls and unsteady gait. Patient is diagnosed with gait instability, impaired mobility ADL performance, neuroleptic induced Parkinson's disease, and ETOH dependence. Patient is at risk for further falls and has increased risk for hospitalization from failure to thrive at home. He will benefit from a penitentiary facility placement for continued skilling for strengthening and balance. Patient presents with clinical signs and symptoms consistent with current/a dmitting diagnoses that have resulted to mobility limitations, gait instability, generalized weakness, and impairment of motor control as demonstrated by the following impairment level findings: 1. Decreased strength to B LE major muscle groups 2. Impaired sitting/standing balance 3. Impaired activity tolerance Impairments are contributing to the following functional limitations: 1. Dependent bed mobility skills 2. Increased dependence with transfers 3. Inability to safely ambulate without assistive device and physical assistance 4. Increase completion time for mobility ADL performance 5. Increased fall risk 6. Inability to negotiate steps alone safely Patient is assessed as a [id number] moderate complexity based on the following: History: Patient is a 69-year-old male presented to the ED on 08/18/2019 due to frequent falls and unsteady gait. Patient is diagnosed with gait instability, impaired mobility ADL performance, neuroleptic induced Parkinson's disease, and ETOH dependence. Examination: Demonstrable impairment in strength, balance, and activity tolerance with underlying impairments and functional limitations as documented above Presentation:Evolving Decision Makin moderate complexity Goals: N/A. Patient is evaluation only. Plan of Care/Treatment Plan: N/A. Patient is evaluation only. DISCHARGE RECOMMENDATIONS: Patient will benefit from penitentiary facility placement in order to progress mobility level, strength, and balance in to reduce fall risk. TREATMENT CODE/TIME: [id number] x 30 minutes beginning at 4:04 PM. Thank you very much for this referral. Deysi Plascencia PT, DPT, CLT [facility]
--- NOTE | 2019-08-18 19:05 | NUR.NOTE ---
Assumed care of pt. Report from Lesa. Pt to be transferred to rehab in am s/p mechanical fall. Plan to board in ED overnight. Pt A&Ox3, denies pain. Ambulates with walker. Pt aware of and agreeable to plan.
[2019-08-18] MEDS: Apixaban 5 MG TAB PO (19:45)
[2019-08-18] MEDS: Carbidopa 25/Levodopa 100 TAB PO (19:45)
--- NOTE | 2019-08-18 20:46 | NUR.NOTE ---
Report to MS. Laird transported to [facility] with all belongings, clothing, cane.
--- NOTE | 2019-08-18 21:03 | HPE_ITS ---
Date of service: 08/18/19 Time of Service: 21:06 Assessment and Plan Assessment and plan (1) Gait instability: Status: Acute Assessment and plan: continue w/ P.T. gait, mobility and strength training; refer to [facility]. He apparently has been accepted into the [facility] in [place], [place] for tomorrow. (2) Impaired mobility and ADLs: Status: Acute Assessment and plan: as above w/ regard to P.T. and referral to an inpatient program (3) Neuroleptic induced Parkinsonism: Status: Chronic Assessment and plan: probable cause for his gait instability. avoidance of neuroleptic potentiating medications. supportive care w/ walker/cane, P.T., currently he is on levodopa/carbidopa; I will leave it to neurology to make any adjustments (4) Hypothyroidism: Status: Chronic Assessment and plan: continue current dose of levothyroxine 25 mcg daily; last TSH was in therapeutic range and was done in June. Qualifiers: Hypothyroidism type: acquired Qualified Code(s): E03.9 - Hypothyroidism, unspecified (5) Atrial flutter: Status: Chronic Assessment and plan: heart rate is well controlled. current home medications of amiodarone, diltiazem and apixaban and metoprolol succinate Qualifiers: Atrial flutter type: typical Qualified Code(s): I48.3 - Typical atrial flutter (6) Alcohol dependence: Status: Acute Assessment and plan: He reports that his last drink of alcohol was two years ago, however, he in fact was in acute alcohol withdrawal and admitted to [facility] the end of March of this year. I will monitor him w/ CIWA protocol to watch for signs of acute withdrawal and if there is no evidence for withdrawal then he can be discharged to the [facility] tomorrow. If he shows withdrawal then he will need prolonged stay or transfer to [facility] for treatment. History of Present Illness History of Present Illness Chief Complaint: frequent falls, unsteady gait Narrative: 69-year-old male with a past medical history of atrial flutter, alcohol dependence w/ withdrawal, bipolar disorder, dyslipidemia, hypothyroidism and neuroleptic induced parkinsonism who presents emergency department because of frequent falls at home and gait instability. He lives alone in home in [place], [place], but has visiting nurse however despite this he has had diminished ADL performance. Lives in a single level dwelling but because of his downstairs bathroom being out of order he has had to climb stairs for the past week to use the bathroom. His rehabilitation case coordinator has been concerned about his safety at home and is been working with him to get him placed in long- term housing through the [facility]. Yesterday the patient reports walking to his kitchen when he lost his balance and fell backwards but denied striking his head or losing consciousness but did complain of right elbow pain as well as low back pain and left hip pain. He has been able to ambulate with mild lower back discomfort. He has no headache or dizziness and denies any neck pain. He has had no chest pain or shortness of breath. He was seen in the emergency department by KEENAN Tinoco who performed a work-up including a CT scan of his head as well as x-rays of his right elbow as well as his pelvis and lumbosacral spine. CT of his head showed no evidence of acute intracranial process. X-rays of his right elbow showed no evidence of elbow joint effusion or hemarthrosis. He has degenerative changes of the joints the elbow with some deformity of the radial head there is felt to be on a degenerative basis although a nondisplaced fracture cannot be entirely excluded. X-rays of his left hip and pelvis showed mild degenerative changes of both hips with no acute fracture seen. An x-ray of his lumbosacral spine showed an old L1 compression fracture and degenerative disc changes at L5-S1. The hospitalist rehabilitation case coordinator evaluate the patient in the emergency department and agreed that he was not safe to return to his home by himself. He was evaluated by physical therapy who expressed concerns of unsteadiness and safety concerns at home. Case management initiated referral to rehab as well as the [facility] and apparently he has been accepted for the [facility] in [facility] for tomorrow. He was going to be held in the emergency department overnight and transferred first thing the morning I have the emergency department asked that the patient be admitted up to the medical/surgical floor on observation status. Review of Systems All systems reviewed & are unremarkable except as noted in HPI and below PFSH Medical History (Updated 08/18/19 @ 21:46 by Evin Greenberg) Alcohol dependence (Chronic) Atrial flutter (Chronic) Bipolar disorder (Chronic) Dyslipidemia (Chronic) Hematuria (Chronic) History of cannabis abuse (Chronic) Hypothyroidism (Chronic) Neuroleptic induced Parkinsonism (Chronic) Surgical History History of surgery on arm (Acute) S/P foot surgery, left (Acute) Social History (Updated 08/18/19 @ 21:51 by Evin Greenberg) Smoking/Tobacco Use Status: Former Tobacco Use Alcohol Intake: current Alcohol Intake frequency: holidays/special occasions only Drug use: Occasionally Substance use type: marijuana Housing: house 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 No children. 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 Meds Home Medications and Allergies Home Medications Medication Instructions Recorded Confirmed Type apixaban 5 mg tablet 5 mg PO BID 06/30/19 08/18/19 History diltiazem HCl 180 mg 180 mg PO DAILY 06/30/19 08/18/19 History capsule,extended release 24 hr levothyroxine 25 mcg tablet 25 mcg PO DAILY 06/30/19 08/18/19 History melatonin 3 mg capsule 3 mg PO HS PRN 06/30/19 08/18/19 History acetaminophen 325 mg capsule 650 mg PO Q4H PRN cap 08/10/19 08/18/19 History carbidopa 25 mg-levodopa 100 mg 1 tab PO TID #1 tab 08/10/19 08/18/19 Rx tablet sennosides 8.6 mg tablet 8.6 mg PO BID 08/10/19 08/18/19 History amiodarone 400 mg PO DAILY 08/18/19 08/18/19 History metoprolol succinate 25 mg PO DAILY 08/18/19 08/18/19 History Allergies Allergy/AdvReac Type Severity Reaction Status Date / Time plasma Allergy Unknown Uncoded 08/18/19 11:36 tuna fish AdvReac Intermediate Nausea Uncoded 08/18/19 11:36 Exam Const General: cooperative, no acute distress and well groomed Nutritional Appearance: average body habitus and well nourished Orientation: alert, awake and oriented x3 Eyes General: appearance normal, both eyes and all related structures Visual Puentes: normal visual puentes by confrontation Alignment and Position: alignment normal Periorbital: periorbital findings normal Eyelids: eyelids normal Conjunctivae: conjunctivae normal Sclera: sclerae normal Cornea: corneas normal Pupils: PERRL, normal by confrontation and accommodation normal EOM: EOM intact bilaterally Neck Neck: normal visual inspection, full ROM, no lymphadenopathy, trachea midline and supple Thyroid: thyroid normal Carotids: normal carotid upstroke Lymphatic: no lymphadenopathy noted Chest Chest: normal inspection of the chest and normal palpation of entire chest wall Resp Effort & Inspection: normal respiratory effort and able to speak in complete sentences Auscultation: clear to auscultation bilaterally Percussion: percussion normal Cardio Jugular venous pressure: no JVD Palpation: normal PMI Rate: regular rate Rhythm: abnormal rhythm irregularly irregular Heart Sounds: no murmurs Pulses: normal peripheral pulses GI Inspection: normal to inspection Palpation: soft, no hepatosplenomegaly and nontender Percussion: normal to percussion Auscultation: normal bowel sounds Back/Spine/Pelvis Back: no CVA tenderness Cervical Spine: normal cervical lordosis and cervical ROM normal Thoracic/Lumbar Spine: thoracic and lumbar spine normal to inspection and thoraco-lumbar ROM normal Skin General skin exam: no rashes or lesions noted, elasticity normal and turgor normal Lesions: no lesions Rashes: no rashes Trauma: no lacerations or abrasions Hair: normal Neuro General: alert, awake, oriented x3, moves all extremities and no focal motor deficits Cranial Nerves: CN's II-XI intact bilaterally, PERRL, accommodation normal, EOM intact bilaterally, no nystagmus, facial strength normal, tongue midline, gag reflex normal, hearing normal, able to rotate head bilaterally, able to elevate shoulders bilaterally and Symmetric palate elevation Cognition: normal cognition Speech: speech normal Motor: muscle tone normal throughout, strength 5/5 throughout and tremor bilateral upper extremity resting tremor Sensory Exam: no sensory deficits noted Extrem General: normal to inspection, full ROM, normal capillary refill, no joint enlargement, no clubbing, cyanosis or edema and no calf tenderness bilaterally Psych Appearance: grossly normal Mental Status: mental status grossly normal Speech and Movement: speech and movement normal Mood: congruent mood Affect: normal affect Attitude: cooperative Thought Process: normal Thought Content: normal Insight: insight good Judgment: judgment good Results Imaging Additional studies: Exam(s) a CT:CT head wo EXAM: CT HEAD WO CLINICAL HISTORY: fall, on blood thinner TECHNIQUE: Noncontrast cranial CT was performed. COMPARISON: CT HEAD WO from 04/08/2019 FINDINGS: There is moderate cerebral atrophy most prominent involving the frontal lobes. No evidence of acute intracranial hemorrhage, mass effect or midline shift. The orbital and temporal bone structures appear intact. Paranasal sinuses and mastoid air cells are fairly well aerated as visualized. IMPRESSION: No evidence of acute intracranial process. Imaging Studies: Exam(s) a RAD:XR hip LT complete & AP pelvis EXAM: XR HIP LT COMPLETE AP PELVIS CLINICAL HISTORY: fall, pain, injury TECHNIQUE: COMPARISON: THORACIC SPINE from 03/14/2016 FINDINGS: Two views were obtained. There are mild degenerative changes of both hips. No acute fracture identified. Exam(s) a RAD:XR lumbar spine complete EXAM: XR LUMBAR SPINE COMPLETE CLINICAL HISTORY: pain, fall TECHNIQUE: The study was performed according to the usual protocol. COMPARISON: LUMBAR SPINE AP, LAT from 03/14/2016 RENAL COLIC WO CONTRAST from 12/17/2016 FINDINGS: Five views were obtained. There is disc space narrowing at L5-S1. This finding appears to have been present on prior CT of December 2016. Mild chronic compression fracture of L1 also noted, unchanged from previous CT. Moderate endplate hypertrophy noted at multiple levels, facet hypertrophic degenerative changes also noted throughout the lumbar region. No evidence of spondylolysis or spondylolisthesis. There is a slight left convex lumbar scoliosis. IMPRESSION: No evidence of acute fracture. Old slight L1 vertebral compression fracture. Disc degenerative changes at L5-S1. Last Vital Signs Temp 36.6 C 08/18/19 20:42 Pulse 78 08/18/19 20:42 Resp 16 08/18/19 20:42 BP 101/59 L 08/18/19 20:42 Pulse Ox 97 08/18/19 20:42
[2019-08-19 04:00] VITALS: BP 92/67; PULSE 98; RESP 18; TEMP 36.6; O2SAT 98
[2019-08-19] MEDS: Levothyroxine 25 MCG TAB PO (06:44)
[2019-08-19 07:45] VITALS: BP 101/69; PULSE 95; RESP 18; TEMP 36.8; O2SAT 96
[2019-08-19 08:12] LABS: Abs Immature Grans 0.01 k/cumm (0.0-0.09); Absolute Basophil Count 0.09 k/cumm (0.0-0.2); Absolute Eosinophil Count 0.19 k/cumm (0.0-0.7); Absolute Lymphocyte Count 2.19 k/cumm (1.2-3.4); Absolute Monocyte Count 0.46 k/cumm (0.11-0.7); Absolute Neutrophil Count 6.48 k/cumm (1.2-6.7); HCT 36.7 % (40.0-50.0); HGB 12.2 g/dL (13.5-17.5); Immature Grans % 0.1; Lymphocytes % 23.2; Mean Corp. HGB Concentration 33.2 g/dL (32.0-36.0); Mean Corpuscular Hemoglobin 31.4 pg (27.0-33.0); Mean Corpuscular Volume 94.3 fL (80-95); Mean Platelet Volume 10.6 fL (8.0-11.0); Monocytes % 4.9; Neutrophils % 68.8; Platelet Count 274 x1000/uL (130-400); RBC 3.89 m/cumm (4.50-6.00); RBC Distribution Width 13.6 % (11.8-14.1); White Blood Cell Count 9.42 k/cumm (4.4-10.8)
[2019-08-19 08:38] LABS: ALT 15 U/L (16-63); AST 13 U/L (15-37); Alkaline Phosphatase 71 U/L (46-116); Anion Gap 7.7 mmol/L (3-11); BUN 15 mg/dL (7-18); Bilirubin, Direct 0.13 mg/dL (0.00-0.20); Bilirubin, Total 0.5 mg/dL (0.2-1.0); CO2 26.3 mmol/L (21.0-32.0); CREATININE 1.05 mg/dL (0.70-1.30); Calcium 8.5 mg/dL (8.5-10.1); Chloride 107 mmol/L (98-107); Glucose 97 mg/dL (70-100); Potassium 3.6 mmol/L (3.5-5.1); Sodium 141 mmol/L (136-145); Total Protein 5.8 g/dL (6.4-8.2)
--- NOTE | 2019-08-19 10:38 | W.PM.DS.N ---
Date of service: 08/19/19 Time of Service: 10:38 DS: Diagnosis Discharge Diagnosis (1) Gait instability: Status: Acute (2) Impaired mobility and ADLs: Status: Acute (3) Neuroleptic induced Parkinsonism: Status: Chronic (4) Hypothyroidism: Status: Chronic (5) Atrial flutter: Status: Chronic Asessment and Plan: rate controlled, on anticoagulation (6) Alcohol dependence: Status: Resolved Asessment and Plan: last drink >100 days ago (7) Compression fracture of L1 lumbar vertebra: Status: Chronic Discharge Plan Disposition Patient Disposition: SKILLED NSG. FAC.(LEVEL 1) Condition: Stable Discharge Details Chief Complaint: Orthopedic Clinical Impression: Frequent falls, Gait disturbance, Weakness, Contusion of elbow, right, Injury of hip, left Reason For Visit: FALLS,DIFF SELF AMBULATING Admit Date/Time: 08/18/19 20:07 Admit Provider: Evin Greenberg Attending Provider: Evin Greenberg Primary Care Provider: Elizabeth Bolton ED Provider: Long Morales Hospital Course Hospital Course: Mr Lin is a 69 year old male with PMHx of atrial flutter on anticoagulation with eliquis, as well as bipolar disorder, drug-induced Parkinsonism, hypothyroidism, who was observed on [facility] hospitalist service from 08/18/19 until 08/19/19 after presenting to [facility] with falls and ambulatory dysfunction for some time. He has no focal neurological deficits to suggest a stroke. His presentation is more consistent with Parkinsonism. He states that his last drink was more than 100 days ago, so we do not feel that he is in danger of alcohol withdrawal at this time. His labs were normal, and he is medically cleared for placement into the [facility] in [place] today. No changes are being made ot his medications on discharge. Home Meds and New Rx's Prescriptions: Continued acetaminophen 325 mg capsule 650 mg PO Q4H PRNRF: 0 sennosides 8.6 mg tablet 8.6 mg PO BID RF: 0 apixaban 5 mg tablet 5 mg PO BID RF: 0 diltiazem HCl 180 mg capsule,extended release 24hr 180 mg PO DAILY RF: 0 levothyroxine [Synthroid] 25 mcg tablet 25 mcg PO DAILY RF: 0 melatonin 3 mg capsule 3 mg PO HS PRNRF: 0 amiodarone 200 mg Tablet 400 mg PO DAILY RF: 0 metoprolol succinate 25 mg Tablet Extended Release 24 Hr 25 mg PO DAILY RF: 0 carbidopa-levodopa 25-100 mg Tablet 1 tab PO BID RF: 0 Discharge Instructions Instructions: Contusion in Adults (ED) Additional Instructions: Rest. Activities as tolerated. Elevate injury to prevent swelling. Sling for comfort for no more than 3 to 5 days There is an area of abnormality noted on your right radial head x-ray and your elbow however given your exam we do not feel this is likely an acute fracture but follow-up is required for any persistence of pain Ice to the area of discomfort for 15 min. 3-5 times daily. Tylenol every 6 hours for soreness if needed over the counter for comfort. Followup with orthopedic doctor as discussed if not improving in one week. Return for any worsening or concerns sooner if needed. Care Plan Goals: [facility] in [place] Referrals: Mitchell Goldman MD [ [facility] STAFF PHYSICIAN] - Activity:: Activity as Tolerated Equipment/Supplies:: No Equipment Needed Diet:: Low Sodium Discharge Orders Discharge Orders: Discharge Order (Routine); Ordered 08/19/19 Ordered By: Irene Tomlin DS: Summary Status at Discharge Functional status at discharge: uses cane/walker Overall status at discharge: patient is progressing back to baseline Mental Status: mental status grossly normal Speech and Movement: speech and movement normal Mood: congruent mood Affect: other (flat affect (expected with Parkinsonism).) Exam Narrative Exam Narrative: General: very pleasant tremulous male with hypotonia, masked faces, flat affect, sitting comfortably in a chair, A&Ox3, appropriate, able to move all 4 extremities, 5/5 strength throughout HEENT: EOMI, MMM Heart: RRR, no m/r/g Lungs: CTAB GI: abdomen is soft, nontender, nondistended Extremities: no e/c/c BLE's Psych Mental Status: mental status grossly normal Speech and Movement: speech and movement normal Mood: congruent mood Affect: other (flat affect (expected with Parkinsonism).) DS: Data Vitals/I&O Vitals and I&O: Vital Signs Temperature 36.8 C 08/19/19 07:45 Temperature Source Tympanic 08/19/19 07:45 Pulse 95 H 08/19/19 07:45 Pulse Rhythm Regular 08/18/19 20:57 Pulse 104 H 08/18/19 11:50 Respiratory Rate 18 08/19/19 07:45 Respiratory Effort Non-Labored 08/18/19 20:57 Respiratory Depth Normal 08/18/19 20:57 Respiratory Pattern Normal 08/18/19 20:57 Blood Pressure 101/69 08/19/19 07:45 Blood Pressure Mean 82 08/18/19 19:15 Blood Pressure Position Supine 08/18/19 11:27 Pulse Oximetry 96 08/19/19 07:45 Oxygen Delivery Method Room Air 08/19/19 07:45 Oxygen Flow Rate 0 08/19/19 07:45 Pain Level 0 08/19/19 07:45 Intake & Output 08/18/19 08/18/19 08/19/19 11:59 23:59 11:59 Intake Total 500 / 500 Output Total 300 / 300 Balance 200 / 200 Weight 61.235 kg 61.235 kg 61 kg Intake: Oral 500 / 500 Output: Urine 300 / 300 Other: Urine Color Yellow Urine Appearance Clear Voiding Methods Urinal Data Completed and Pending Completed studies during hospitalization [Text1]: CT head without contrast: No evidence of acute intracranial process. XR R elbow: Three views were obtained. There is no evidence of an elbow joint effusion or hemarthrosis. There are degenerative changes of the joints of the elbow. There is some deformity of the radial head, this is likely on a degenerative basis, nondisplaced fracture is not entirely excluded. Appropriate follow-up studies or CT suggested. (Clinically, patient has no pain in the elbow on the am of 08/19/19 - no further imaging is pursued). XR L hip: Two views were obtained. There are mild degenerative changes of both hips. No acute fracture identified. XR lumbar spine: No evidence of acute fracture. Old slight L1 vertebral compression fracture. Disc degenerative changes at L5-S1. Labs on day of discharge: Labs from last 24 hours 08/19/19 08/19/19 08:04 08:04 WBC 9.42 RBC 3.89 L Hgb 12.2 L Hct 36.7 L MCV 94.3 MCH 31.4 MCHC 33.2 RDW 13.6 Plt Count 274 MPV 10.6 Immature Gran % 0.1 Neutrophils % 68.8 Lymphocytes % 23.2 Monocytes % 4.9 Eosinophils % 2.0 Basophils % 1.0 Absolute Neutrophils 6.48 Absolute Lymphocytes 2.19 Absolute Monocytes 0.46 Absolute Eosinophils 0.19 Absolute Basophils 0.09 Sodium 141 Potassium 3.6 Chloride 107 Carbon Dioxide 26.3 Anion Gap 7.7 BUN 15 Creatinine 1.05 Estimated GFR/1.73 m2 >= 60.00 Glucose 97 Calcium 8.5 Magnesium 2.0 Total Bilirubin 0.5 Conjugated Bilirubin 0.13 AST 13 L ALT 15 L Alkaline Phosphatase 71 Total Protein 5.8 L Albumin 3.0 L [facility] Medical History (Updated 08/19/19 @ 10:51 by Irene Tomlin MD) Alcohol dependence (Resolved) Atrial flutter (Chronic) Bipolar disorder (Chronic) Compression fracture of L1 lumbar vertebra (Chronic) old Dyslipidemia (Chronic) Hematuria (Chronic) History of cannabis abuse (Chronic) Hypothyroidism (Chronic) Neuroleptic induced Parkinsonism (Chronic) Surgical History History of surgery on arm (Acute) S/P foot surgery, left (Acute) Social History (Updated 08/18/19 @ 21:51 by Evin Greenberg) Smoking/Tobacco Use Status: Former Tobacco Use Alcohol Intake: current Alcohol Intake frequency: holidays/special occasions only Drug use: Occasionally Substance use type: marijuana Housing: house 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 No children. 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
[2019-08-19] MEDS: Apixaban 5 MG TAB PO (11:05)
[2019-08-19] MEDS: Carbidopa 25/Levodopa 100 TAB PO (11:05)
[2019-08-19] MEDS: Amiodarone 200 MG TAB 400 MG PO (11:05)
[2019-08-19] MEDS: dilTIAZem CD 180 MG CAPCR PO (11:05)
[2019-08-19] MEDS: Senna TAB 1 TAB PO (11:05)
[2019-08-19] MEDS: Metoprolol CR 25 MG TABCR PO (11:05)
--- NOTE | 2019-08-19 18:31 | PDOC.CMDIS ---
- If Service Date Differs Date of service: 08/19/19 Time of Service: 18:31 LACE Index Scoring Tool - Questions: Length of Stay (in days): 1 Acuity (Admit via E.D.?): Yes E.D. Visits: 2 - Answers: Total Score: 6 Risk of Readmission: Low Risk Care Management Discharge Reason for Hospitalization: gait instability Discharge Plan: Josue will be transferred to the [facility] in [place], [place] He will transport via [facility] coordinated by CM. Patient/Family Education Needs: Discharge plan to be determined by receiving facility. Services Needed at Discharge: [facility] Facility, Transportation - MH Services (Omit if N/A) Current MH Services: [facility]
== END 2019-08-19 11:45 | disposition skilled nursing facility (03) ==
LOC: ER 20:33 → MS 20:48
PROVIDERS: Admitting Provider Internal Medicine; Emergency Provider Physician Assistant; PCP Family Medicine; Visit Provider Internal Medicine
DX: R26.81 Unsteadiness on feet (principal); Z91.81 History of falling; Z74.09 Other reduced mobility; Z60.2 Problems related to living alone; G21.11 Neuroleptic induced parkinsonism; E03.9 Hypothyroidism, unspecified; I48.92 Unspecified atrial flutter; Z79.01 Long term (current) use of anticoagulants; F31.9 Bipolar disorder, unspecified; F10.21 Alcohol dependence, in remission
CPT/HCPCS: 36415; 80048; 80076; 97162; 99217; 99220; 99285; 70450; 72110; 73080; 73502; 83735; 85025; 99284; G0378; L3650